=== PATIENT | male | born 1960 | race Caucasian/White ===

== ENCOUNTER 2021-06-30 10:59 | Inpatient (IN) | payer MEDICARE, MEDICAID, SELFPAY ==
[2021-06-30 13:18] VITALS: O2SAT 99; BMI 32.7
[2021-06-30 13:28] VITALS: BP 122/59; PULSE 75; RESP 16; TEMP 36.6; O2SAT 97
[2021-06-30] MEDS: ACETAMINOPHEN 325 MG TABLET 650 MG PO (14:18)
[2021-06-30] MEDS: PIPERACILLIN/TAZO 3.375 GM in SODIUM CHLORIDE 0.9% 100 ML 25 ML IV ×2 (14:19→21:09)
[2021-06-30] MEDS: KETOROLAC 30 MG/ML VIAL IV (14:19)
[2021-06-30 16:16] VITALS: BP 117/70; PULSE 74; RESP 18; TEMP 37.1; O2SAT 95
[2021-06-30 17:00] VITALS: O2SAT 95
--- NOTE | 2021-06-30 18:24 | PM.HP.1 ---
History of Present Illness History of Present Illness Date Patient Seen: 06/30/21 Time Patient Seen: 18:24 Chief complaint: Direct admit/cholecystitis Narrative: Buzz Hi is a 60-year-old man transferred from an outside facility for acute cholecystitis. He developed right upper quadrant pain over the course the last 2 days. He presented to the outside institution with abdominal bloating and pain underwent ultrasound that demonstrates cholelithiasis and acute cholecystitis normal LFTs white blood cell count 13. He was started on antibiotic therapy has significant improvement in his abdominal pain since arrival. He is tolerating a clear liquid diet. He has remote history of myocardial infarction with stents takes aspirin and PRASUGREL last dose yesterday 9:00 a.m.. Patient History Medical History BPH (benign prostatic hyperplasia) Hyperlipidemia Hypertension Myocardial infarct, old Neuropathy Vertigo Surgical History Hx of tonsillectomy Family & Social History Family History Mother Cancer Dementia Father Cancer Social History: household members none Prior Living Arrangements House Safety & Behavioral: Feels Safe in Current Yes Environment Been Physically Hurt or No Threatened By a Person Suicidal Ideation Description None Suicide Plan Description No Plan Tobacco & Substance use: Smoking Status Never smoker alcohol intake never Substance Use Type does not use Meds Home Medications and Allergies Home Medications Medication Instructions Recorded Confirmed Type amiloride 5 mg tablet mg BID 06/30/21 History ascorbic acid (vitamin C) 500 mg 500 PRN PRN 06/30/21 History tablet (Vitamin C) aspirin QAM 06/30/21 History atorvastatin 80 mg tablet mg QPM 06/30/21 History losartan 25 mg tablet mg BID 06/30/21 History prasugrel 10 mg tablet mg QAM 06/30/21 History tamsulosin 0.4 mg capsule mg PO QAM 06/30/21 History Allergies Allergy/AdvReac Type Severity Reaction Status Date / Time No Known Drug Allergies Allergy Verified 06/30/21 13:38 Review of Systems Review of Systems ROS: Yes All systems reviewed with the patient and are negative except as otherwise documented Exam Vital Signs (past 8 hours): - 06/30/21 13:18 06/30/21 13:28 06/30/21 16:16 Temperature 97.8 F 98.8 F Pulse Rate 75 74 Respiratory Rate 16 18 Blood Pressure 122/59 L 117/70 Pulse Oximetry 99 97 95 06/30/21 17:00 Temperature Pulse Rate Respiratory Rate Blood Pressure Pulse Oximetry 95 Oxygen Delivery Method Room Air Oxygen Flow Rate 0 Narrative Exam Narrative: Constitutional-he is oriented to person, place and time. No apparent distress Cardiovascular- regular rate, no peripheral edema Pulmonary-unlabored respiratory effort, no audible wheezing Abdominal-soft, minimally tender right upper quadrant no guarding Musculoskeletal-no cyanosis or clubbing Neurological-nonfocal, normal strength throughout, normal gait. Skin-warm and dry Assessment & Plan Assessment and plan (1) Acute cholecystitis: Status: Acute Assessment & Plan narrative: 60-year-old man history of myocardial infarction on aspirin and PRASUGREL here with acute cholecystitis. He has significant improvement in his abdominal pain since starting on Zosyn. Discussed with him management options including surgical and non operative therapy. With dual anti-platelet therapy recommended that we proceed with non operative management at this time followed by an elective cholecystectomy when he is sufficiently off the anti-platelet medication. Will reassess abdominal pain in a.m. check CBC and CMP. Quality VTE Deep Vein Thrombosis/Pulmonary Embolism Present on Admission: No
[2021-06-30 20:28] VITALS: BP 136/67; PULSE 71; RESP 18; TEMP 36.9; O2SAT 96
[2021-06-30 20:43] VITALS: O2SAT 95
--- NOTE | 2021-06-30 22:19 | PC.NURSE ---
shift overview VSS. Alert and oriented and cooperative with care. Abdomen distended with bowel tones +x4. Tolerating PO intake without nausea or increase in discomfort. Pt's dinner consisted of fruit, chix noodle soup, V8 juice and some coffee. Denies need for pain medication. Pt aware will have AM labs and than plan from there. using call light for needs and prior to activity and instructed to continue with the same.
[2021-07-01] VITALS (9 sets, daily range): BP systolic 105–132; BP diastolic 59–79; PULSE 68–79; RESP 16; TEMP 36.5–38.1; O2SAT 93–96
[2021-07-01] MEDS: KETOROLAC 30 MG/ML VIAL IV ×3 (00:15→22:32)
[2021-07-01] MEDS: MELATONIN 3 MG TABLET PO (00:16)
[2021-07-01] MEDS: PIPERACILLIN/TAZO 3.375 GM in SODIUM CHLORIDE 0.9% 100 ML 25 ML IV ×3 (04:14→20:57)
[2021-07-01 06:38] LABS: Add Manual Diff / Slide Review NO; Basophils Absolute Auto 100 /uL (0-100); Basophils Percent Auto 0.6 % (0-2); Eosinophils Absolute Auto 200 /uL (0-450); Hematocrit 38.1 % (41-53); Hemoglobin 12.6 g/dL (13.5-17.5); Lymphocytes Absolute Auto 900 /uL (1100-4500); Lymphocytes Percent Auto 5.5 % (25-40); Mean Corpuscular Hemoglobin 28.6 PG (26-34); Mean Corpuscular Volume 86.7 fL (80-100); Monocytes Absolute Auto 1600 /uL (0-900); Monocytes Percent Auto 9.6 % (3-14); Neutrophils Absolute Auto 14100 /uL (1500-7000); Neutrophils Percent Auto 83.3 % (50-75); Platelet Count 190 X10^3/uL (150-400); Red Blood Cell Count 4.39 X10^6/uL (4.5-5.9); Red Cell Distribution Width 12.9 % (11.6-14.8); White Blood Cell Count 16.9 X10^3/uL (4.5-11.0)
[2021-07-01 06:52] LABS: Alanine Aminotransferase 22 IU/L (<50); Albumin 3.7 g/dL (3.5-5.0); Albumin Globulin Ratio 1.1 (1.0-2.8); Alkaline Phosphatase 92 U/L (38-126); Aspartate Aminotransferase 31 IU/L (17-59); BUN Creatinine Ratio 12.9 (6-22); Bilirubin Total 1.3 mg/dL (0.2-1.3); Blood Urea Nitrogen 9 mg/dL (9-20); Calcium 9.1 mg/dL (8.4-10.2); Carbon Dioxide 28 mmol/L (22-32); Chloride 100 mmol/L (98-107); Estimated Glomerular Filt Rate > 60.0 mL/min (>60); Globulin 3.5 g/dL (1.7-4.1); Glucose 125 mg/dL (70-100); HEMOLYSIS < 15 (0-50); Potassium 3.9 mmol/L (3.4-5.1); Sodium 134 mmol/L (137-145); Total Protein 7.2 g/dL (6.3-8.2)
--- NOTE | 2021-07-01 09:29 | P.PN_ITS ---
Subjective Subjective Date Patient Seen: 07/01/21 Time Patient Seen: 09:29 Interval history: Worsening right upper quadrant pain overnight. No fever no nausea. Exam Vital Signs (past 8 hours): - 07/01/21 04:35 07/01/21 05:00 07/01/21 07:40 Temperature 98.6 F 97.9 F Pulse Rate 68 79 Respiratory Rate 16 16 Blood Pressure 105/59 L 132/78 Pulse Oximetry 95 95 93 Oxygen Delivery Method Room Air Oxygen Flow Rate 0 Narrative Exam Narrative: General adult male alert no acute distress. Abdomen positive Felix sign. Objective Labs Result Diagrams: 07/01/21 06:12 07/01/21 06:12 Labs: Laboratory Results - last 24 hr 07/01/21 07/01/21 06:12 06:12 WBC 16.9 H RBC 4.39 L Hgb 12.6 L Hct 38.1 L MCV 86.7 MCH 28.6 MCHC 33.0 RDW 12.9 Plt Count 190 Neut % (Auto) 83.3 H Lymph % (Auto) 5.5 L [place] % (Auto) 9.6 Eos % (Auto) 1.0 L Baso % (Auto) 0.6 Neut # (Auto) 96759 H Lymph # (Auto) 900 L [place] # (Auto) 1600 H Eos # (Auto) 200 Baso # (Auto) 100 Sodium 134 L Potassium 3.9 Chloride 100 Carbon Dioxide 28 BUN 9 Creatinine 0.70 Estimated GFR > 60.0 BUN/Creatinine Ratio 12.9 Glucose 125 H Calcium 9.1 Total Bilirubin 1.3 AST 31 ALT 22 Alkaline Phosphatase 92 Total Protein 7.2 Albumin 3.7 Globulin 3.5 Albumin/Globulin Ratio 1.1 [facility] Medical History BPH (benign prostatic hyperplasia) Hyperlipidemia Hypertension Myocardial infarct, old Neuropathy Vertigo Surgical History Hx of tonsillectomy Family History Mother Cancer Dementia Father Cancer Social History household members: none Smoking Status: Never smoker alcohol intake: never Assessment & Plan Assessment and plan (1) Acute cholecystitis: Status: Acute Assessment & Plan narrative: 60-year-old man history of myocardial infarction admitted with acute cholecystitis. Trialed non operative management with antibiotic therapy over the past 24 hours however he has worsening right upper quadrant pain and white blood cell count now 17 up from 13 despite antibiotics. This was initially done because he was taking aspirin and prasugrel last dose 06/29 and we were attempting to post pone surgery until it could be done electively when he was sufficiently off the antiplatelet medication. I explained that the approach is not working and I think it would be best to move forward with cholecystectomy. Patient extremely irascible today talking in wide ranging tangents about cancer concerns, and the medical system in general and leaving the hospital. -NPO IVF -Zosyn -Consult with social work to determine if he wants to stay for an operation or leave against medical advice Quality VTE Deep Vein Thrombosis/Pulmonary Embolism Present on Admission: No
--- NOTE | 2021-07-01 10:18 | PC.NURSE ---
Patient is agitated and very suspicious of staff. Per retail shift manager report, patient insisted his medication wrist band was being scanned overnight and stating medication was being given, however that was not the case. During assessment this morning, patient is stating that he does not trust the doctors and is fixating on a cancer diagnosis that he does not have. Dr. Florez in to see pt, explaining his recommendation is surgical intervention. Patient is upset and refusing to make a decision about surgery or leaving the hospital. After a long discussion with me, the pt cannot or will not tell me what needs to happen to assist him to make a decision. TOMY Mendoza, and Marga the charge nurse will speak with the patient to attempt to assist him.
[2021-07-01] MEDS: OXYCODONE IR 5 MG TABLET PO (12:07)
--- NOTE | 2021-07-01 15:38 | CM.IDA ---
Initial DCP Assessment Note Pt is a 60 yo male, resident of [facility], arrives via EMS, apparently a direct admit from [facility] for worsening abd pain, surgeon is recommending lap sherry. PCP: Not listed Payer: [facility] According to conversation w/Dr Florez this morning, patient has been quite reluctant re: accepting medical care and appears suspicious of staff. Dr Florez requesting this TROLLEY COACH DRIVER assist in identification of barriers to care and indicates patient may be considering leaving against medical advice. This TROLLEY COACH DRIVER and CAPO Dye met w/patient in room to support and discuss any perceived barriers to care. Patient is very cyclical during this conversation, states concerns about the medical field, behavior from doctors and admits to apprehension re: the proposed surgery. Patient willing to state he is not considering leaving AMA at this time but will not consent to the recommended lap sherry at this time. Patient requests access to his medical record to review; CAPO Dye kindly assisted with this today. Patient also states concern re: the status of his cardiac history and how that will effect surgery, and requests additional time to think about the ramifications of this surgery before agreeing. CAPO Dye and CAPO Hernandes have kindly spent much of the day educating and encouraging patient as he considers treatment options here at [facility]. TOMY Correia Discharge Planning/Care Management CM Discharge Assessment Start: 07/01/21 15:36 Freq: Status: Active Protocol: Document 07/01/21 15:36 JOSIE (Rec: 07/01/21 15:38 [id number]) Discharge Planning Assessment Assigned Studio Associate TOYM Escobar DPOA/Assigned Designee Name dhiraj Majano Contact Information Patient unsure of number: or [phone] (?) Advance Directives? No History Provided By Patient Prior Living Arrangements House Household Members none Type of transportation used prior to Drives own vehicle admit Independent with ADL's Yes Is patient alert and oriented? Yes Barriers to Discharge No Comment Not at this time. Medical POC still unfolding Discharge Plan Home Transportation Arrangement Bus vs taxi vs friend to transport (?)
[2021-07-01] MEDS: SODIUM CHLORIDE 0.9% FLUSH 10 ML IV (20:57)
--- NOTE | 2021-07-01 23:48 | P.CONS_ITS ---
History of Present Illness Consult details Date Patient Seen: 07/01/21 Time Patient Seen: 21:00 Chief complaint: Direct admit/cholecystitis Narrative: Buzz Hi is a 60-year-old man transferred from an outside facility admitted to surgery service Dr. Florez for acute cholecystitis. Cholelithiasis and acute cholecystitis found on ultrasound, with normal LFTs w neelam blood cell count 13 on admit. Patient trialed non operative management with antibiotic therapy over 24 hours however he has worsening right upper quadrant pain and white blood cell count now 17 up from 13 despite antibiotics. He has remote history of myocardial infarction with stents takes aspirin and PRASUGREL last dose yesterday 9:00 a.m 06/30/2021. Apparently patient had a myocardial infa rction December 2020. It was recomended that he undergo bypass surgery at that time and he fired the cardiac surgeon and had stents placed instead. Dr. Florez graciously requested that the Hospital Service consult for perioperative risk stratification regarding patient's anticoagulation medication. Upon exam the patient is extremely agitated state, very verbal, verbalizes paranoia regarding the staff, Dr. Florez, treatment, and plan of care. The patient states that no one has been answering his questions, or the answers have been incorrect or lies. Patient's nurse advised me that he has been consulted by the care management team. Patient has been refusing to let the staff taking his vital signs. As I questioned the patient regarding HPI, ROS and exam, the patient looked away would not make eye contact and became silent refusing to answer even the smallest question. The patient verbalized that he is at the [facility] or victim of the staff and facility, I explained to him his patient rights. I verbalized to the patient he had a right to refuse any and all medical care and to leave the facility at any time. And that no one had the right to touch him without his consent. I asked multiple times regarding patient's ROS and HPI. As well as asking permission to physically assess the patient. Every time the patient would look away refusing to make eye contact and was silent refusing to acknowledge me, and would not answer. Patient was quite verbose in his communication which was centered around his concerns that the staff of the facility are not informed, that he has not been provided correct information regarding his health and/or the plan of care, and finally his concerns regarding cancer. It appears the patient has had multiple family members who have from cancer. The patient requested to have a complete workup for any and all cancers. I advised the patient that I bone be requesting to have a tele monitor placed on him so that we could monitor his heart and that he had the right to refuse, I also requested that he allow the staff to check his vital signs when schedule to do so. Meds Home Medications and Allergies Home Medications Medication Instructions Recorded Confirmed Type amiloride 5 mg tablet 5 mg BID 06/30/21 06/30/21 History ascorbic acid (vitamin C) 500 mg 500 mg PRN PRN 06/30/21 06/30/21 History tablet (Vitamin C) aspirin 81 mg QAM 06/30/21 06/30/21 History atorvastatin 80 mg tablet 80 mg QPM 06/30/21 06/30/21 History losartan 25 mg tablet 25 mg BID 06/30/21 06/30/21 History prasugrel 10 mg tablet 10 mg QAM 06/30/21 06/30/21 History tamsulosin 0.4 mg capsule 0.4 mg PO QAM 06/30/21 06/30/21 History Allergies Allergy/AdvReac Type Severity Reaction Status Date / Time No Known Drug Allergies Allergy Verified 06/30/21 13:38 Review of Systems Review of Systems Narrative: Patient unwilling to participate in ROS. Exam Vital Signs (past 8 hours): - 07/01/21 17:00 07/01/21 21:00 07/01/21 22:02 Temperature 99.8 F H Pulse Rate 68 Respiratory Rate 16 Blood Pressure 129/79 Pulse Oximetry 96 95 93 Oxygen Delivery Method Room Air Oxygen Flow Rate 0 Narrative Exam Narrative: General: Patient is a well-developed, well-nourished male in no distress at this time. HEENT: Normocephalic, atraumatic, extraocular muscles intact, oral pharynx is clear and mucous membranes are moist. Chest: Normal AP diameter and contour without kyphoscoliosis, no nasal flaring, retractions, or tachypneic labored Lungs: Not assessed patient did not provide consent Cardio: Not assessed patient did not provide consent Abdomen: Not assessed patient did not provide consent Musculoskeletal: no obvious observable deformity, crepitus, effusions, cyanosis, clubbing or edema present. Skin: Appears Warm dry and intact without rashes, ulcerations or petechiae. Neuro: Alert and orientated x3, no gross deficits observed of cranial nerves. Psych: Patient has a well-kept appearance, agitated, irritable, paranoid, mental status attitude thought context and judgment are inappropriate for age. Objective Labs Result Diagrams: 07/01/21 06:12 07/01/21 06:12 Labs: Laboratory Results - last 24 hr 07/01/21 07/01/21 06:12 06:12 WBC 16.9 H RBC 4.39 L Hgb 12.6 L Hct 38.1 L MCV 86.7 MCH 28.6 MCHC 33.0 RDW 12.9 Plt Count 190 Neut % (Auto) 83.3 H Lymph % (Auto) 5.5 L [place] % (Auto) 9.6 Eos % (Auto) 1.0 L Baso % (Auto) 0.6 Neut # (Auto) 11015 H Lymph # (Auto) 900 L [place] # (Auto) 1600 H Eos # (Auto) 200 Baso # (Auto) 100 Sodium 134 L Potassium 3.9 Chloride 100 Carbon Dioxide 28 BUN 9 Creatinine 0.70 Estimated GFR > 60.0 BUN/Creatinine Ratio 12.9 Glucose 125 H Calcium 9.1 Total Bilirubin 1.3 AST 31 ALT 22 Alkaline Phosphatase 92 Total Protein 7.2 Albumin 3.7 Globulin 3.5 Albumin/Globulin Ratio 1.1 Assessment & Plan Assessment & Plan narrative: Buzz Hi is a 60-year-old admitted to surgery service Dr. Florez for acute cholecystitis and Cholelithiasis. Dr. Florez kindly requested that the hospitalist Service consult regarding his prasugrel and ASA for remote history of myocardial infarction with stents. 1 cholelithiasis with acute cholecystitis, acute, present on admission -managed by Dr. Florez 2. History of myocardial infarction in the setting of stent placement and long-term anticoagulation, with essential hypertension, chronic, present on admission -last dose yesterday 9:00 a.m 06/30/2021 ASA & Prasugrel -MS with stent placement December 2020 -Based on risk stratification and the 2016 ACC/AHA guidelines it is safe to stop patient's ASA and Prasugrel for non cardiac surgery as it has been 6 months since the patient's MS with stent placement-based on the medical history provided to Dr. Florez by the patient. Please note I was unable to verify these facts, as the patient refused to provide any history, answer any questions, or allowed me to complete a physical exam. -The risks of noncardiac surgery after six months decreases the risks of both BMS and SELENA. (2016 ACC/AHA guidelines) -For prasugrel, it is recommended stopping 5-7 days before surgery. -patient did eventually consent to be monitored on telemedicine -recommend continue patient's losartan and amiloride -I was unable to verify the patient is not having any cardiac symptoms nor was I allowed to assess patient's heart sounds, as patient did not answer when questioned about chest pain, shortness of breath, diaphoresis, or any other cardiac symptoms. 3. Hyperlipidemia, chronic, present on admission -Continue patient's Lipitor 4. BPH, chronic, present on admission -continue patient's tamsulosin 5. Obesity as evidence by BMI 32.7, acute on chronic, present on admission -recommend consideration be given to dietary counseling Code status: Full code COVID PCR: negative COVID vaccination: Unknown Surrogate decision maker: Samm Juarez DVT/VTE prophylaxis: Medication contraindicated, SCDs only Disposition: Unknown I have utilized all available immediate resources to obtain, update, or review the patient's current medications.-patient refused to answer any questions, provide any information, or participate in his care at this time. I confirmed that the patient's advanced care plan is present, Code status is documented and/or surrogate decision maker is listed in the patient's medical record.
[2021-07-02] VITALS (18 sets, daily range): BP systolic 106–158; BP diastolic 50–93; PULSE 76–99; RESP 14–25; TEMP 36.3–39.1; O2SAT 91–96
--- NOTE | 2021-07-02 | PATH_ITS ---
[facility] Accession Number: [id number] . 01 Material submitted: . gallbladder - GALLBLADDER AND CONTENTS . 02 Diagnosis: Gallbladder, Cholecystectomy: Acute cholecystitis with cholelithiasis. Negative for dysplasia and malignancy. Please see comment. V 07/07/2021 1048 Local . 02 Comment: There is patchy coagulative necrosis versus autolysis present. Clinical correlation recommended. . 02 Electronically signed: . Rica Butler MD, Pathologist NPI- [id number] . 01 Gross description: . The specimen is received in formalin, labeled gallbladder and contents and consists of a fragmented gallbladder measuring 11.5 x 4.0 x 3.5 cm in aggregate. The area of the cystic duct is diffusely disrupted and measures approximately 0.6 cm in diameter. The serosa is haider-pink to haider-green with fibrinous adhesions. Opening reveals a haider-green trabeculated mucosa and a wall thickness measuring 0.6 cm. Also received within the specimen container are multiple haider cholelith fragments measuring 5.0 x 4.0 x 2.0 cm in aggregate. Fabric Worker Fitter sections are submitted, to include the area of the cystic duct margin (blue), in cassette A1. ([id number]) /MRV 07/06/2021 1119 Local . 02 Pathologist provided ICD-10: K80.60 . 02 CPT . 847733 Performed at: 01 [facility] [address], [place], [place] [id number] MD Juan Carlos Marin MD Phone: [phone] Performed at: 02 [facility] [address] [place], [place] [id number] MD Rica Butler MD Phone: [phone]
[2021-07-02] MEDS: LACTATED RINGERS 1,000 ML 42 ML IV (00:21)
[2021-07-02] MEDS: PIPERACILLIN/TAZO 3.375 GM in SODIUM CHLORIDE 0.9% 100 ML 25 ML IV (04:14)
--- NOTE | 2021-07-02 07:39 | PC.NURSE ---
Patient states each time I enter the room about his concerns for CA marker tests in his blood. Insists on this type of blood draw, refusing surgery until he can know that he does not have cancer before surgery. I tried to listen to his concerns, assuring him that staff is concerned with his inquiries. Told him it would be up to the provider if any testing was done. Wanted to know why hospitals are more concerned with money than patients. He has had 3 family members of cancer after hospitalizations or surgeries. Per patient report. Also said what would happen if he did not have surgery? Stated will refuse to leave, stated in pain, did not wish any pain medication this shift. Mentioned that no one is listening, despite reports from coordinator and off going shift that that had listened. He stated care management or sr. social media & mobile manager did not have any answers for his car that is stuck in [place]. Stated lawsuits against medical staff with his family deaths. Appears benjamin closed loops for his numerous concerns.
--- NOTE | 2021-07-02 09:53 | PC.NURSE ---
Addendum entered by Mariaelena Koehler R.N. 07/02/21 10:06: CT scan abdomen with contrast ordered, patient refusing diagnostic. States he is not cooperating. Original Note: 0940: Notified Dr. Grover regarding temp 101.4 Orally, new orders obtained. Patient refusing Tylenol. Refused am labs. Discussed importance of interventions to care for patient during hospitalization including but not limited to labs, medications, and antipyretics. Patient refusing nursing care, refused labs at second attempt.
--- NOTE | 2021-07-02 10:45 | PM.PN.1 ---
Subjective Subjective Date Patient Seen: 07/02/21 Time Patient Seen: 15:13 Interval history: Patient with improved abdominal pain, but still with fevers rising WBC count. He tells me his LHC was done at [facility] in [place]. He is very distrustful of physicians after that experience. He was initially recommended for triple bypass surgery, but got another opinion and had 2 stents placed instead. He has continued his medications he states, including aspirin an prasurgrel. He thinks his LHC was 12/24/20 or so. Given 6 months, it is reasonably safe to stop both medications for surgery and restart them as soon as possible after. Ideally for non-urgent/non-emergent surgeries this is held for 7 days but not required. He does note some chest discomfort with profound exertion since his stent placement. Will check an TTE today though no sign of acute volume overload on exam. EKG without evidence of active ischemia. Exam Vital Signs (past 8 hours): - 07/02/21 04:10 07/02/21 05:00 07/02/21 09:00 Temperature 98.2 F 101.4 F H Pulse Rate 76 98 H Respiratory Rate 16 16 Blood Pressure 146/77 H 158/93 H Pulse Oximetry 95 95 95 Oxygen Delivery Method Room Air Oxygen Flow Rate 0 Narrative Exam Narrative: GENERAL APPEARANCE: Well developed, well nourished, in no acute distress. SKIN: Inspection of the skin reveals no rashes, ulcerations or petechiae. HEENT: Normocephalic atraumatic, extraocular muscles are intact, oropharynx is clear and mucous membranes are moist, neck is supple without adenopathy NECK: Supple and symmetric. No JVD. CHEST: Normal AP diameter and normal contour without any kyphoscoliosis. LUNGS: Auscultation of the lungs revealed no wheezes, rhonchi, or rales. CARDIOVASCULAR: There was a regular rate and rhythm , 2/6 systolic murmur without rubs or gallops. ABDOMEN: Soft, minimally tender RUQ today, non-distended. MUSCULOSKELETAL: There was no tenderness or effusions noted. Muscle strength and tone were normal. EXTREMITIES: No cyanosis, clubbing or edema. NEUROLOGIC: Alert and oriented. Strength is +5/5 in the Upper Extremities and Lower Extremities Bilaterally. Psych: distrustful, but calm and cooperative. Objective Labs Result Diagrams: 07/02/21 11:40 07/02/21 11:40 [facility] Medical History BPH (benign prostatic hyperplasia) Hyperlipidemia Hypertension Myocardial infarct, old Neuropathy Vertigo Surgical History Hx of tonsillectomy Family History Mother Cancer Dementia Father Cancer Social History household members: none Smoking Status: Never smoker alcohol intake: never Assessment & Plan Assessment & Plan narrative: Buzz Hi is a 60-year-old admitted to surgery service Dr. Florez for acute cholecystitis and Cholelithiasis. Dr. Florez requested that the hospitalist Service consult regarding his prasugrel and ASA for remote history of myocardial infarction with stents. 1 cholelithiasis with acute cholecystitis, acute, present on admission -managed by Dr. Florez / surgical service. Agree with current antibiotic therapy. 2. History of myocardial infarction in the setting of stent placement and long-term anticoagulation, with essential hypertension, chronic, present on admission -last dose yesterday 9:00 a.m 06/30/2021 ASA & Prasugrel -ND with stent placement December 2020, probably 10/23/21 per patient. -Based on risk stratification and the 2016 ACC/AHA guidelines it is safe to stop patient's ASA and Prasugrel for non cardiac surgery as it has been 6 months since the patient's ND with stent placement. He states he has reliably taken these medications. -For prasugrel, it is recommended stopping 5-7 days before surgery in non-urgent/non-emergent situations. Currently safe to continue holding while awaiting surgery. -continue patient's home medications. -patient reports minimal cardiac symptoms after stent placement which are unchanged. Will check a TTE given this, but he appears euvolemic and medically as optimized as possible. Restart asa as soon as possible. Given 6+ months would ideally start prasurgrel as soon as possible as well, but if bleeding risk is high can consider holding this another few days after surgery. - preoperative troponin is negative. Would recommend post operative troponins given recent history. - TTE currently pending results. 3. Hyperlipidemia, chronic, present on admission -Continue patient's Lipitor 4. BPH, chronic, present on admission -continue patient's tamsulosin 5. Obesity as evidence by BMI 32.7, acute on chronic, present on admission - places patient at higher risk for complications due to potential surgery. Code status: Full code COVID PCR: negative Surrogate decision maker: Samm Stephens VTE Deep Vein Thrombosis/Pulmonary Embolism Present on Admission: No
[2021-07-02] MEDS: MEROPENEM 1 GM in SODIUM CHLORIDE 0.9% 100 ML 200 ML IV ×2 (11:13→17:57)
[2021-07-02] MEDS: ACETAMINOPHEN 325 MG TABLET 650 MG PO (11:19)
[2021-07-02 11:56] LABS: Add Manual Diff / Slide Review NO; Basophils Absolute Auto 100 /uL (0-100); Basophils Percent Auto 0.3 % (0-2); Eosinophils Absolute Auto 200 /uL (0-450); Eosinophils Percent Auto 0.9 % (2-4); Hematocrit 40.8 % (41-53); Hemoglobin 13.5 g/dL (13.5-17.5); Lymphocytes Absolute Auto 600 /uL (1100-4500); Lymphocytes Percent Auto 3.1 % (25-40); Mean Corpuscular HGB Conc 33.1 % (30-36); Mean Corpuscular Hemoglobin 28.5 PG (26-34); Mean Corpuscular Volume 86.1 fL (80-100); Monocytes Absolute Auto 1000 /uL (0-900); Monocytes Percent Auto 5.2 % (3-14); Neutrophils Absolute Auto 17100 /uL (1500-7000); Neutrophils Percent Auto 90.5 % (50-75); Platelet Count 238 X10^3/uL (150-400); Red Blood Cell Count 4.74 X10^6/uL (4.5-5.9); Red Cell Distribution Width 13.3 % (11.6-14.8); White Blood Cell Count 18.9 X10^3/uL (4.5-11.0)
[2021-07-02] MEDS: VANCOMYCIN 2,000 MG/400 ML PIGGYBACK 200 MG IV (12:00)
[2021-07-02 12:08] LABS: Creatine Kinase 24 U/L (55-170)
[2021-07-02 12:10] LABS: Alanine Aminotransferase 26 IU/L (<50); Albumin 4.3 g/dL (3.5-5.0); Alkaline Phosphatase 168 U/L (38-126); Aspartate Aminotransferase 33 IU/L (17-59); BUN Creatinine Ratio 18.5 (6-22); Bilirubin Total 1.7 mg/dL (0.2-1.3); Blood Urea Nitrogen 12 mg/dL (9-20); Calcium 9.9 mg/dL (8.4-10.2); Carbon Dioxide 23 mmol/L (22-32); Chloride 99 mmol/L (98-107); Estimated Glomerular Filt Rate > 60.0 mL/min (>60); Globulin 4.1 g/dL (1.7-4.1); Glucose 88 mg/dL (70-100); HEMOLYSIS < 15 (0-50); Potassium 3.6 mmol/L (3.4-5.1); Sodium 136 mmol/L (137-145); Total Protein 8.4 g/dL (6.3-8.2)
[2021-07-02 12:21] LABS: Troponin I 0.012 ng/mL (0.01-0.034)
[2021-07-02 12:40] LABS: Carcinoembryonic Antigen 0.9 ng/mL (0.1-3.0)
--- NOTE | 2021-07-02 12:41 | DI.ECHO.S_ITS ---
[facility]---------+ [facility] +---------+ : : [address] : : : : [id number] : : : : Phone: [phone]+ Echocardiogram Report + + :Name: GOLD SOLIS Study Date: 07/02/2021 Height: 70 in : :[facility] ReadingLocation: Weight: 226 lb : : Gender: Male BSA: 2.2 m2 : :: 1960 Age: 60 yrs BP: 129/79 mmHg: :Reason For Study: Chest pain : :Ordering Physician: EVA, : :MARYA HAMPTON Performed By: Ricardo Lew : :Referring: MARYA VELASQUEZ : + + Interpretation Summary Left ventricular systolic function appears normal with an estimated ejection fraction of around 60 to 65% with a mild dyssynchronous contraction pattern but no obvious focal wall motion abnormality. Left ventricular size and wall thickness are normal although with slight proximal septal thickening but no evidence for any outflow tract obstruction. There is a probable diastolic relaxation abnormality but probable normal filling pressures. The right ventricle appears normal in size and systolic function. CVP is around 3 mmHg. Both atria are normal in size. There is no significant valvular abnormality. Procedure: A two-dimensional transthoracic echocardiogram with color flow and Doppler was performed. The study quality was technically adequate. There is no prior echocardiogram noted for this patient. A contrast injection of Definity was performed to improve assessment of LV function. The patient was in sinus rhythm with heart rates between 80-90 bpm during the exam. Left Ventricle: The left ventricle is normal in size and wall thickness. There is mild proximal septal thickening noted. There is no echo evidence for significant left ventricular outflow tract obstruction. Left ventricular systolic function is normal. The ejection fraction is estimated to be 60-65%. There is a mild dyssynchronous contraction pattern, consistent with a conduction abnormality. There are no focal wall motion abnormalities. Diastolic parameters suggest a relaxation abnormality of the left ventricle, consistent with probable normal filling pressures. Right Ventricle: The right ventricle is normal in size and function. Atria: Both atria are normal in size. There is no Doppler evidence for an interatrial shunt. Mitral Valve: The mitral valve is normal in structure and function. There is trace mitral regurgitation. Aortic Valve: The aortic valve is normal in structure and function. The aortic valve is trileaflet. The aortic valve opens well. No aortic regurgitation is present. Tricuspid Valve: The tricuspid valve is normal in structure and function. There is a trace or physiologic amount of tricuspid regurgitation. Pulmonary artery pressures cannot be estimated because of the lack of a measurable TR jet velocity but the IVC suggests a CVP of around 3 mmHg. Pulmonic Valve: The pulmonic valve is normal in structure and function. There is no pulmonic valvular regurgitation. There is no significant valvular heart disease. Great Vessels: The aortic root is normal size. The dimensions of the ascending aorta are normal. The IVC is of normal diameter and collapses greater than 50% with a sniff. This suggests a low right atrial pressure of 3 mm Hg. Pericardium/ Pleura There is no pericardial effusion. There is no pleural effusion. MMode/2D Measurements & Calculations LVIDd: 5.2 cm LVOT diam: 2.0 cm LVIDs: 3.8 cm Ao root diam: 3.0 cm FS: 28.0 % asc Aorta Diam: 2.9 cm IVSd: 1.0 cm LVPWd: 0.97 cm LV delgadillo. diameter/BSA (cm/m^2): 2.4 LV sys. diameter/BSA (cm/m^2): 1.7 LA A2 area: 21.0 cm2 RA long axis: 4.7 cm LA A4 area: 16.3 cm2 RA area: 12.5 cm2 LA length (vol): 5.4 cm RA vol: 28.3 ml LA vol: 53.9 ml RA : 12.9 ml/m2 LA vol index: 24.5 ml/m2 TAPSE: 2.8 cm Doppler Measurements & Calculations Ao V2 max: 199.3 cm/sec LVOT Max Grzegorz: 137.6 cm/sec Ao V2 mean: 133.9 cm/sec LV V1 max P.6 mmHg Ao max P.9 mmHg LV V1 VTI: 25.8 cm Ao mean P.2 mmHg MICHAEL(I,D): 2.6 cm2 Ao V2 VTI: 31.1 cm MICHAEL(V,D): 2.2 cm2 sev ratio: 0.83 MICHAEL indexed to BSA (cm^2/m^2): 1.2 MV E max grzegorz: 95.1 cm/sec PA pr(Accel): 42.2 mmHg MV A max grzegorz: 134.0 cm/sec MV E/A: 0.71 Med Peak E' Grzegorz: 6.1 cm/sec E/E' med: 15.5 Lat Peak E' Grzegorz: 8.5 cm/sec E/E' lat: 11.2 E/e' average: 13.3 MV dec time: 0.27 sec SV([facility]): 81.6 ml Reading Physician:03:39 PM
--- NOTE | 2021-07-02 17:18 | P.PN_ITS ---
Subjective Subjective Interval history: He believes his pain is improved. Concerned that his urine is getting darker since he has been made NPO Exam Vital Signs (past 8 hours): - 07/02/21 11:51 07/02/21 13:12 07/02/21 14:18 Temperature 102.4 F H 99.4 F Pulse Rate 99 H Respiratory Rate 14 Blood Pressure 129/79 Pulse Oximetry 94 93 07/02/21 15:56 Temperature 99.1 F Pulse Rate 78 Respiratory Rate 18 Blood Pressure 126/73 Pulse Oximetry 95 Oxygen Delivery Method Room Air Oxygen Flow Rate 0 Narrative Exam Narrative: Patient's temperature is been elevated. He was valentine cultured at least ordered to be valentine cultured. Lungs are clear. Abdomen is soft. Distended somewhat. No specific tenderness perhaps slightly in the upper mid and right upper quadrant. No palpable mass appreciated. Patient is alert oriented. Objective Imaging Echo: My impression: The impression of the supervisor special effects to interpreted the echocardiogram is that there is some very mild irregularities in the motion but it is an essentially normal study with normal ejection fraction normal wall motion and normal valves. Labs Result Diagrams: 07/02/21 11:40 07/02/21 11:40 Labs: Laboratory Results - last 24 hr 07/02/21 07/02/21 07/02/21 11:40 11:40 11:40 WBC 18.9 H RBC 4.74 Hgb 13.5 Hct 40.8 L MCV 86.1 MCH 28.5 MCHC 33.1 RDW 13.3 Plt Count 238 Neut % (Auto) 90.5 H Lymph % (Auto) 3.1 L [place] % (Auto) 5.2 Eos % (Auto) 0.9 L Baso % (Auto) 0.3 Neut # (Auto) 41606 H Lymph # (Auto) 600 L [place] # (Auto) 1000 H Eos # (Auto) 200 Baso # (Auto) 100 Sodium 136 L Potassium 3.6 Chloride 99 Carbon Dioxide 23 BUN 12 Creatinine 0.65 L Estimated GFR > 60.0 BUN/Creatinine Ratio 18.5 Glucose 88 Calcium 9.9 Total Bilirubin 1.7 H AST 33 ALT 26 Alkaline Phosphatase 168 H D Total Creatine Kinase 24 L CK-MB (CK-2) TNP CK-MB (CK-2) Rel Index TNP Troponin I 0.012 Total Protein 8.4 H Albumin 4.3 Globulin 4.1 Albumin/Globulin Ratio 1.0 Carcinoembryonic Ag 07/02/21 11:40 WBC RBC Hgb Hct MCV MCH MCHC RDW Plt Count Neut % (Auto) Lymph % (Auto) [place] % (Auto) Eos % (Auto) Baso % (Auto) Neut # (Auto) Lymph # (Auto) [place] # (Auto) Eos # (Auto) Baso # (Auto) Sodium Potassium Chloride Carbon Dioxide BUN Creatinine Estimated GFR BUN/Creatinine Ratio Glucose Calcium Total Bilirubin AST ALT Alkaline Phosphatase Total Creatine Kinase CK-MB (CK-2) CK-MB (CK-2) Rel Index Troponin I Total Protein Albumin Globulin Albumin/Globulin Ratio Carcinoembryonic Ag 0.9 PFSH Medical History BPH (benign prostatic hyperplasia) Hyperlipidemia Hypertension Myocardial infarct, old Neuropathy Vertigo Surgical History Hx of tonsillectomy Family History Mother Cancer Dementia Father Cancer Social History household members: none Smoking Status: Never smoker alcohol intake: never Assessment & Plan Assessment and plan (1) Acute cholecystitis: Status: Acute (2) History of coronary artery disease: Status: Acute (3) Enlarged prostate: Status: Acute Assessment & Plan narrative: Patient's anti-platelet drugs have been held. He has been seen by Dr. Bose our packaging line operator. I had a very long conversation in the presence of the nursing aluminum fabrication supervisor(at the patient's request) regarding exactly what his perceptions are and his goal in this hospitalization. It has been documented that he refused portions of the evaluation of the hospitalist overnight. He declined surgical treatment of his gallbladder yesterday. I ordered labs this morning and he declined to have those drawn initially as well. He also told me that he did not like the attitude of the surgeon and seemed to feel the same way about the provider who saw him for the hospitalist service and thus had refused to interact with them. In discussion with the patient it is his perception that he should have a thorough evaluation to prove that he does not have cancer before he has an operation. He has multiple family members who have had cancers of various kind. He was under the impression from the emergency room at [facility] that they would do blood work to rule out all sorts of cancers. He does not want to have an operation that opens him up in find cancer and nothing can be done. This is in the face of the fact that he really does not have any symptoms that would lead 1 to believe he has cancer at this time, and most of these kinds of evaluations are done as an outpatient. He did point out that he had a CT scan already at [facility] and I was able to review those x-rays and reports. He appears to have a distended gallbladder and probably has hydrops to my review. This would certainly explain why his white count is rising despite broad-spectrum antibiotic coverage. Today it continues to rise with a marked distribution of segs(90%) and his liver function tests worthy ve also begun to rise. This is most likely due to the inflammation in his gallbladder. Temperature is also gone up to as high as 102.4. In order to appease him I added a CEA and PSA to his blood work along with cardiac enzymes which was also of concern to him. Thus he agreed to have the blood work done which I have mentioned the results of. In a seperate conversation I reviewed all these labs except the PSA (which is not available yet) with the patient this afternoon. I explained to him that both Dr. Florez and I have recommended that he have his gallbladder out. I explained to him that the longer we wait the more difficult the operation and the harder on every organ system in his body it could potentially be, including his heart. I explained that the inflammation is already affecting his liver in a way that it had not been before. I explained to him that we would start laparoscopically but might have to open him due to the amount of inflammation. I also explained that we might laparoscopically evaluate him and feel that it would be better to place a drainage tube in the gallbladder at the time of the operation. That would depend on findings at the time of the operation and could not be predicted before hand. He would like to consider all this information before coming to a decision. I explained to him that he if he did not want an operation he should at least consider having a drainage tube placed in his gallbladder which may get him over the acute illness that he is suffering at this time and allow for elective removal of his gallbladder at a future date. If he decided to go that route I explained to him that we could not do that here as we do not have Int erventional Radiology and I would have to transfer him. He is mulling over all of that information and wanted to speak with Dr. Bose again before making any decision. Additionally, I did discuss the echo report with him as well. It is a near normal study except for some mild contraction abnormalities. Quality VTE Deep Vein Thrombosis/Pulmonary Embolism Present on Admission: No
[2021-07-02 17:42] LABS: Prostate Specific Antigen 4.61 ng/mL (0.10-4.00)
[2021-07-02] MEDS: LACTATED RINGERS 1,000 ML 150 ML IV ×2 (17:59→20:17)
--- NOTE | 2021-07-02 18:29 | PM.PREOP ---
Pre-operative Note COVID-19 COVID-19 status: Negative Result date/Date tested (Pos, Neg/Pending): 06/30/21 Interval Note History & Physical reviewed/Exam performed by Physician: Yes Changes to H&P: Yes H&P completed within 30 days and has changed as indicated here:: After discussion with the imagery intelligence about a half an hour ago patient has decided to proceed with an operation. I have discussed the operation in detail. I discussed with him laparoscopic versus open cholecystectomy with possible cholangiogram and possible need for postoperative ERCP. I talked to him about the possibility of displacing a drain in his gallbladder should be that inflamed and difficult operation. I talked to him about the risks of bleeding and infection. I talked to him about the possibility of a hernia developing and postoperative limitations on lifting and straining. I talked to him about the risk of injury to internal organs or ducts which might require major operation to repair if that occurred. I talked to him about postoperative bile leakage. I talked to him about the risk to his heart and lungs especially given his cardiac status. All questions were answered. And he wishes to proceed.
--- NOTE | 2021-07-02 18:56 | PC.NURSE ---
TAKEN TO SURGERY APROX. 190
--- NOTE | 2021-07-02 19:40 | SUR.OPER ---
Supine on padded OR bed, head on pillow, safety belt at thigh, left arm padded and tucked at side. Right arm secured on padded arm board <90 degrees abduction. Legs uncrossed. Padded footboard in place. Tape over blanket to secure lower legs.
[2021-07-02] MEDS: BUPIVACAINE 0.5% (PF) VIAL 30 ML INJ (19:53)
--- NOTE | 2021-07-02 21:50 | PM.OP.1 ---
Operative Date/Time/Diagnoses Date of procedure: 07/02/21 Time of procedure: 21:50 Pre-op diagnosis: Acute cholecystitis with cholelithiasis Post-op diagnosis: same (With gangrene of the gallbladder) Procedure & Clinicians Procedure: Laparoscopic cholecystectomy (unusually difficult operation) Same procedure as scheduled: Yes Indications: Patient is a gentleman admitted with upper abdominal pain, a CT showing probable hydrops, and a rising white count. Initially he declined an operation but ultimately was willing to proceed to the operating room to remove his gallbladder. Surgeon: Hakan Grover Click Yes if Unassisted: Yes Anesthesia Type: General Operative Notes Findings: Markedly thickened gallbladder with a necrotic wall. One large stone lodged in the into the gallbladder obstructing the outflow. Closure Type: primary Specimen(s): other (Gallbladder and stone) Prosthetic devices, grafts, tissues, transplants, or devices: None Applied: drain(s) (10 mm Scott-Gandhi placed in the gallbladder fossa) Estimated Blood Loss (mL): 100 Blood products transfused: none Procedure in detail: The patient was placed supine on the operating room table and underwent general endotracheal anesthesia. The patient was prepped and draped in the usual fashion. Local anesthetic was infiltrated above r the umbilicus and linear incision made and carried down through fascia into the peritoneal cavity. Stay sutures of 0 Vicryl were placed in the fascia. A 12 mm port was placed. The abdomen was insufflated. The patient was repositioned. Local anesthetic was infiltrated in 3 areas under the right costal margin and 3 small incisions made followed by placing 3 5 mm ports under direct laparoscopic camera vision internally. The gallbladder was encased in omentum. This was taken down bluntly. The gallbladder was a markedly thickened distended structure that was quite elongated. Initially could not grasp it and the needle was inserted and I aspirated about 40 cc of dark green fluid which was it is cultured. This allowed me to grasp and elevate the gallbladder. It was clear there places in the wall of the gallbladder were that were necrotic. Just elevating the gallbladder caused bile to leak near the area the Marty where gangrenous wall could be seen. The gallbladder was grasped and elevated. Dissection was begun near its end. I was able to identify the end of the gallbladder and dissect it somewhat. However the tissues were thick and structures were not identifiable and I decided not to dissect in this area for fear of injuring the blood supply of the liver or the common duct. I decided to take the gallbladder down from above. Using a Thunderbeat(Harmonic scalpel) I dissected the gallbladder from its bed in the liver. Some of this dissection was able to be done bluntly because portions of the wall were necrotic. The dissection was carried down and I was able to divide the artery and cauterize it with the Harmonic scalpel. I was having a great deal of difficulty seeing the area of the marty because of the patient's obesity and the difficulty retracting the liver. I decided to divide the gallbladder and half so that I could lift the tissues higher and see the marty better. Using with Harmonic scalpel I divided the gallbladder in half and laid the dissected piece in the right upper quadrant. The open end of the gallbladder revealed a stone impacted in the and. This was making it difficult to grasp the gallbladder that remained attached to the patient. I was able to extract it and lay it where it was easily seen for removal later. I then dissected the lower half about using the Harmonic scalpel. I also used some blunt dissection as well.. Ultimately, only the cystic duct remained tethering the gallbladder to the patient. I placed a 0 PDS loop on it and cinched it down. I then divided the gallbladder above this tie and freed the 2nd piece of the gallbladder from the attachments to the patient. A bag was inserted and I removed the 1st piece of gallbladder, the 2nd piece and the single large stone that had been identified. These were placed in the bag and removed through the umbilical port without spillage. The abdomen is reinserted and the right upper quadrant irrigated and suctioned free of fluid. There was no visible bleeding and no visible leakage of bile. A 10 mm wide Scott-Gandhi drain was placed in the gallbladder fossa and brought out through the lateral-most port under the right costal margin. It was secured with a 3-0 nylon suture. The port sites were all irrigated. The stay sutures at the umbilicus were elevated. A 2 0 PDS suture was placed between them. The Vicryl and PDS sutures were then tied. The skin in all areas was closed with interrupted 4 0 Vicryl subcuticular stitches. Steri-Strips and Mastisol were applied. Gauze was placed around the drain site. Band-Aids were placed on the other incisions and the patient was awakened, extubated and taken to the recovery area in good condition. There were no apparent complications. This was a very difficult and slow operation taking twice as long as a normal laparoscopic cholecystectomy takes. This was due not only to the patient's weight but also due to the amount of inflammation that I encountered during this operation. Complications: none Post-operative Condition: stable Disposition: PACU
--- NOTE | 2021-07-02 22:51 | SUR.PHASEI ---
Pt arrived to PACU, chin support x 5 minutes for airway patency, then self maintained, pt slow to wake. Once awake denied pain, tolerated ice then sips of cranberry juice. Belly soft, bandaids and drain dressings remained c/d/i. Report called to Jacob, pt transported up on 02 then placed on )2 in room. Bed low, locked SCD's adaptive physical education specialist light in reach, pt made aware not to get OOB w/o assist of staff.
[2021-07-02] MEDS: DOCUSATE 100 MG CAPSULE PO (23:16)
[2021-07-02] MEDS: TAMSULOSIN 0.4 MG CAPSULE PO (23:16)
[2021-07-03] VITALS (8 sets, daily range): BP systolic 117–162; BP diastolic 69–91; PULSE 66–94; RESP 16–18; TEMP 35.7–37; O2SAT 92–97
[2021-07-03] MEDS: MEROPENEM 1 GM in SODIUM CHLORIDE 0.9% 100 ML 200 ML IV ×3 (01:45→16:25)
[2021-07-03 06:24] LABS: Add Manual Diff / Slide Review NO; Basophils Absolute Auto 0 /uL (0-100); Basophils Percent Auto 0.2 % (0-2); Eosinophils Absolute Auto 0 /uL (0-450); Eosinophils Percent Auto 0.1 % (2-4); Hemoglobin 11.8 g/dL (13.5-17.5); Lymphocytes Absolute Auto 600 /uL (1100-4500); Lymphocytes Percent Auto 3.6 % (25-40); Mean Corpuscular HGB Conc 32.7 % (30-36); Mean Corpuscular Hemoglobin 28.5 PG (26-34); Mean Corpuscular Volume 87.1 fL (80-100); Monocytes Absolute Auto 300 /uL (0-900); Monocytes Percent Auto 2.1 % (3-14); Neutrophils Absolute Auto 14800 /uL (1500-7000); Platelet Count 247 X10^3/uL (150-400); Red Blood Cell Count 4.13 X10^6/uL (4.5-5.9); Red Cell Distribution Width 13.1 % (11.6-14.8); White Blood Cell Count 15.8 X10^3/uL (4.5-11.0)
[2021-07-03 06:39] LABS: Alanine Aminotransferase 48 IU/L (<50); Albumin 3.4 g/dL (3.5-5.0); Albumin Globulin Ratio 0.9 (1.0-2.8); Alkaline Phosphatase 127 U/L (38-126); Aspartate Aminotransferase 74 IU/L (17-59); BUN Creatinine Ratio 19.7 (6-22); Bilirubin Total 0.6 mg/dL (0.2-1.3); Blood Urea Nitrogen 13 mg/dL (9-20); Calcium 9.2 mg/dL (8.4-10.2); Carbon Dioxide 28 mmol/L (22-32); Chloride 103 mmol/L (98-107); Estimated Glomerular Filt Rate > 60.0 mL/min (>60); Globulin 3.7 g/dL (1.7-4.1); Glucose 135 mg/dL (70-100); HEMOLYSIS < 15 (0-50); Potassium 4.3 mmol/L (3.4-5.1); Sodium 137 mmol/L (137-145); Total Protein 7.1 g/dL (6.3-8.2)
--- NOTE | 2021-07-03 07:34 | P.PN_ITS ---
Subjective Subjective Date Patient Seen: 07/03/21 Interval history: He is seen today to follow-up his cholecystectomy and PTSD with complication of slow return to mobilization/normal. He continues to be somewhat hesitant when encouraged to mobilize and generally suspicious without overt paranoia during my interaction with him and from staff reports of their interaction with him today. He told me that he is on disability for PTSD and ?not for mental problems. ? He discusses that his car is in the parking lot at [facility] ED and at this point he feels unable to drive it because he would not be able to step up high enough into the drivers seat. He tells me that he wants to rest and recover today and not to mobilize. He lives alone in [place]. The white blood count is 15.8 with a hemoglobin of 11.8. The CMP is normal with an AST of 74. The PSA is 4.61 and the glucose is 135. Exam Vital Signs (past 8 hours): - 07/02/21 23:45 07/03/21 00:45 07/03/21 01:45 Temperature 97.6 F 97.6 F 97.1 F L Pulse Rate 76 73 74 Respiratory Rate 16 16 18 Blood Pressure 118/71 124/69 128/75 Pulse Oximetry 95 93 94 07/03/21 05:35 Temperature 96.2 F L Pulse Rate 67 Respiratory Rate 16 Blood Pressure 126/75 Pulse Oximetry 97 Oxygen Delivery Method Nasal Cannula Oxygen Flow Rate 3 Narrative Exam Narrative: Alert and oriented x3. He appears quite weak and hesitant to mobilize because he says his abdominal pain is no better than it was before the surgery. Heart is regular rate and rhythm without murmur Lungs clear to auscultation bilaterally Abdomen is soft, bowel sounds positive, mildly tender at his port points. Extremities have no ankle edema Objective Labs Result Diagrams: 07/03/21 05:45 07/03/21 05:45 Labs: Laboratory Results - last 24 hr 07/02/21 07/02/21 07/02/21 11:40 11:40 11:40 WBC 18.9 H RBC 4.74 Hgb 13.5 Hct 40.8 L MCV 86.1 MCH 28.5 MCHC 33.1 RDW 13.3 Plt Count 238 Neut % (Auto) 90.5 H Lymph % (Auto) 3.1 L [place] % (Auto) 5.2 Eos % (Auto) 0.9 L Baso % (Auto) 0.3 Neut # (Auto) 97086 H Lymph # (Auto) 600 L [place] # (Auto) 1000 H Eos # (Auto) 200 Baso # (Auto) 100 Sodium 136 L Potassium 3.6 Chloride 99 Carbon Dioxide 23 BUN 12 Creatinine 0.65 L Estimated GFR > 60.0 BUN/Creatinine Ratio 18.5 Glucose 88 Calcium 9.9 Total Bilirubin 1.7 H AST 33 ALT 26 Alkaline Phosphatase 168 H D Total Creatine Kinase CK-MB (CK-2) CK-MB (CK-2) Rel Index Troponin I Total Protein 8.4 H Albumin 4.3 Globulin 4.1 Albumin/Globulin Ratio 1.0 Carcinoembryonic Ag Prostate Specific Ag 4.61 H 07/02/21 07/02/21 07/03/21 11:40 11:40 05:45 WBC 15.8 H RBC 4.13 L Hgb 11.8 L Hct 36.0 L MCV 87.1 MCH 28.5 MCHC 32.7 RDW 13.1 Plt Count 247 Neut % (Auto) 94.0 H Lymph % (Auto) 3.6 L [place] % (Auto) 2.1 L Eos % (Auto) 0.1 L Baso % (Auto) 0.2 Neut # (Auto) 24604 H Lymph # (Auto) 600 L [place] # (Auto) 300 Eos # (Auto) 0 Baso # (Auto) 0 Sodium Potassium Chloride Carbon Dioxide BUN Creatinine Estimated GFR BUN/Creatinine Ratio Glucose Calcium Total Bilirubin AST ALT Alkaline Phosphatase Total Creatine Kinase 24 L CK-MB (CK-2) TNP CK-MB (CK-2) Rel Index TNP Troponin I 0.012 Total Protein Albumin Globulin Albumin/Globulin Ratio Carcinoembryonic Ag 0.9 Prostate Specific Ag 07/03/21 05:45 WBC RBC Hgb Hct MCV MCH MCHC RDW Plt Count Neut % (Auto) Lymph % (Auto) [place] % (Auto) Eos % (Auto) Baso % (Auto) Neut # (Auto) Lymph # (Auto) [place] # (Auto) Eos # (Auto) Baso # (Auto) Sodium 137 Potassium 4.3 Chloride 103 Carbon Dioxide 28 BUN 13 Creatinine 0.66 Estimated GFR > 60.0 BUN/Creatinine Ratio 19.7 Glucose 135 H Calcium 9.2 Total Bilirubin 0.6 AST 74 H ALT 48 Alkaline Phosphatase 127 H Total Creatine Kinase CK-MB (CK-2) CK-MB (CK-2) Rel Index Troponin I Total Protein 7.1 Albumin 3.4 L Globulin 3.7 Albumin/Globulin Ratio 0.9 L Carcinoembryonic Ag Prostate Specific Ag PFSH Medical History BPH (benign prostatic hyperplasia) Hyperlipidemia Hypertension Myocardial infarct, old Neuropathy Vertigo Surgical History Hx of tonsillectomy Family History Mother Cancer Dementia Father Cancer Social History household members: none Smoking Status: Never smoker alcohol intake: never Assessment & Plan Assessment & Plan narrative: Buzz Hi is a 60-year-old admitted to surgery service Dr. Florez for acute cholecystitis and Cholelithiasis. Dr. Florez requested that the hospitalist Service consult regarding his prasugrel and ASA for remote history of myocardial infarction with stents. 1 cholelithiasis with acute cholecystitis, acute, present on admission -s/p Cholecystectomy 07/02. -PT eval for mobility. He is hesitant. 2. History of myocardial infarction in the setting of stent placement and long- term anticoagulation, with essential hypertension, chronic, present on admission -MS with stent placement December 2020, probably 10/23/21 per patient. -Based on risk stratification and the 2016 ACC/AHA guidelines it is safe to stop patient's ASA and Prasugrel for non cardiac surgery as it has been 6 months since the patient's MS with stent placement. He states he has reliably taken these medications. -patient reports minimal cardiac symptoms after stent placement which are unchanged. We checked a TTE given this, but he appears euvolemic and medically as optimized as possible. -Now back on Prasrugrel and Aspirin POD #1 - preoperative troponin is negative. - TTE with normal left ventricular function and ejection fraction of 60-65%. -The hospitalist service will sign off at this time. We are available at any time to answer questions and resume following if surgery identifies any further medical problems that need assistance. 3. Hyperlipidemia, chronic, present on admission -Continue Lipitor 4. BPH, chronic, present on admission -continue tamsulosin 5. Obesity as evidence by BMI 32.7, acute on chronic, present on admission - places patient at higher risk for complications due to potential surgery. 6. PTSD -on disability, lives alone, unclear support system -Somewhat suspicious and not easily reassured about many issues day to day Code status: Full code COVID PCR: negative Surrogate decision maker: Samm Stephens VTE Deep Vein Thrombosis/Pulmonary Embolism Present on Admission: No
[2021-07-03] MEDS: TAMSULOSIN 0.4 MG CAPSULE PO (09:59)
[2021-07-03] MEDS: ASPIRIN 81 MG CHEW TAB PO (09:59)
[2021-07-03] MEDS: SENNOSIDES 8.6 MG TABLET 17.2 MG PO (10:00)
[2021-07-03] MEDS: GABAPENTIN 300 MG CAPSULE PO ×2 (10:00→21:01)
[2021-07-03] MEDS: LOSARTAN 25 MG TABLET PO ×2 (10:00→21:01)
--- NOTE | 2021-07-03 10:11 | PM.PN.1 ---
Subjective Subjective Date Patient Seen: 07/03/21 Time Patient Seen: 10:11 Interval history: no events over night. Very anxious patient complains of gas pains. Exam Vital Signs (past 8 hours): - 07/03/21 05:35 07/03/21 08:00 07/03/21 10:00 Temperature 96.2 F L 98.3 F Pulse Rate 67 75 75 Respiratory Rate 16 18 Blood Pressure 126/75 148/84 H 148/84 H Pulse Oximetry 97 96 Oxygen Delivery Method Nasal Cannula Oxygen Flow Rate 0 Const General: cooperative and anxious Nutritional Appearance: overweight Orientation: alert and oriented x3 HENMT Head: normal to inspection Ears: hearing grossly normal bilaterally Resp Effort & Inspection: normal respiratory effort and able to speak in complete sentences GI Other: wounds intact, drain is serous. Objective Labs Result Diagrams: 07/03/21 05:45 07/03/21 05:45 Labs: Laboratory Results - last 24 hr 07/02/21 07/02/21 07/02/21 11:40 11:40 11:40 WBC 18.9 H RBC 4.74 Hgb 13.5 Hct 40.8 L MCV 86.1 MCH 28.5 MCHC 33.1 RDW 13.3 Plt Count 238 Neut % (Auto) 90.5 H Lymph % (Auto) 3.1 L [place] % (Auto) 5.2 Eos % (Auto) 0.9 L Baso % (Auto) 0.3 Neut # (Auto) 21564 H Lymph # (Auto) 600 L [place] # (Auto) 1000 H Eos # (Auto) 200 Baso # (Auto) 100 Sodium 136 L Potassium 3.6 Chloride 99 Carbon Dioxide 23 BUN 12 Creatinine 0.65 L Estimated GFR > 60.0 BUN/Creatinine Ratio 18.5 Glucose 88 Calcium 9.9 Total Bilirubin 1.7 H AST 33 ALT 26 Alkaline Phosphatase 168 H D Total Creatine Kinase CK-MB (CK-2) CK-MB (CK-2) Rel Index Troponin I Total Protein 8.4 H Albumin 4.3 Globulin 4.1 Albumin/Globulin Ratio 1.0 Carcinoembryonic Ag Prostate Specific Ag 4.61 H 07/02/21 07/02/21 07/03/21 11:40 11:40 05:45 WBC 15.8 H RBC 4.13 L Hgb 11.8 L Hct 36.0 L MCV 87.1 MCH 28.5 MCHC 32.7 RDW 13.1 Plt Count 247 Neut % (Auto) 94.0 H Lymph % (Auto) 3.6 L [place] % (Auto) 2.1 L Eos % (Auto) 0.1 L Baso % (Auto) 0.2 Neut # (Auto) 21582 H Lymph # (Auto) 600 L [place] # (Auto) 300 Eos # (Auto) 0 Baso # (Auto) 0 Sodium Potassium Chloride Carbon Dioxide BUN Creatinine Estimated GFR BUN/Creatinine Ratio Glucose Calcium Total Bilirubin AST ALT Alkaline Phosphatase Total Creatine Kinase 24 L CK-MB (CK-2) TNP CK-MB (CK-2) Rel Index TNP Troponin I 0.012 Total Protein Albumin Globulin Albumin/Globulin Ratio Carcinoembryonic Ag 0.9 Prostate Specific Ag 07/03/21 05:45 WBC RBC Hgb Hct MCV MCH MCHC RDW Plt Count Neut % (Auto) Lymph % (Auto) [place] % (Auto) Eos % (Auto) Baso % (Auto) Neut # (Auto) Lymph # (Auto) [place] # (Auto) Eos # (Auto) Baso # (Auto) Sodium 137 Potassium 4.3 Chloride 103 Carbon Dioxide 28 BUN 13 Creatinine 0.66 Estimated GFR > 60.0 BUN/Creatinine Ratio 19.7 Glucose 135 H Calcium 9.2 Total Bilirubin 0.6 AST 74 H ALT 48 Alkaline Phosphatase 127 H Total Creatine Kinase CK-MB (CK-2) CK-MB (CK-2) Rel Index Troponin I Total Protein 7.1 Albumin 3.4 L Globulin 3.7 Albumin/Globulin Ratio 0.9 L Carcinoembryonic Ag Prostate Specific Ag PFSH Medical History BPH (benign prostatic hyperplasia) Hyperlipidemia Hypertension Myocardial infarct, old Neuropathy Vertigo Surgical History Hx of tonsillectomy Family History Mother Cancer Dementia Father Cancer Social History household members: none Smoking Status: Never smoker alcohol intake: never Assessment & Plan Assessment & Plan narrative: Post op labs are as expected. Antibiotics stopped. S/p Lap sherry, anxiety is an issue. Plan: ambulate, advance diet. Social work for disposition. Time Spent With Patient Time with patient: 15-24 minutes Quality VTE Deep Vein Thrombosis/Pulmonary Embolism Present on Admission: No
[2021-07-03] MEDS: SODIUM CHLORIDE 0.9% FLUSH 10 ML IV ×2 (12:19→21:01)
[2021-07-03] MEDS: SIMETHICONE 80 MG TABLET PO ×2 (12:19→21:01)
[2021-07-03] MEDS: AMILORIDE 5 MG 5 EACH PO ×2 (12:19→21:00)
[2021-07-03 12:38] LABS: Vancomycin Trough < 5.0 ug/mL (10-20)
--- NOTE | 2021-07-03 14:06 | PT.IIE ---
Current Diagnoses Acute cholecystitis (06/30/21) Cholecystitis, unspecified (06/30/21) Benign prostatic hyperplasia without lower urinary tract symptoms (06/30/21) Personal history of other diseases of the circulatory system (06/30/21) Surgery Performed Operation Date: 07/02/21 16:30 Actual Procedures p Laparoscopic Cholecystectomy - Hakan Grover MD Medical History (Last Reviewed 07/02/21 @ 17:21 by Hakan Grover MD) BPH (benign prostatic hyperplasia) Hyperlipidemia Hypertension Myocardial infarct, old Neuropathy Vertigo Physical Therapy Inpatient Evaluation/Re-Eval M1 PT/OT-IP Prior Functional Status Start: 07/03/21 15:51 Freq: NEEDED Status: Active Protocol: Document 07/03/21 14:06 AB (Rec: 07/03/21 16:10 AB [email or web address]) Medical Review Prior Functional Status Medical History Reviewed Yes Communication able to make needs known Mobility and Gait pt stated that he is independent with all mobilities and ambulation without AD but has difficulty mobilizing at home Social History Household Members none Living Arrangements House Number of Floors (Floors) One Floor Number of Stairs To Enter/Railing? 1 step to enter Home Environment Standard Height Toilet,Tub/ Shower M2 PT-IP Current Condition Start: 07/03/21 15:51 Freq: NEEDED Status: Active Protocol: Document 07/03/21 14:06 AB (Rec: 07/03/21 16:10 AB [email or web address]) Physical Therapy Current Condition Current Condition Evaluation Date 07/03/21 Treatment Diagnosis s/p Lap sherry; difficulty in walking Onset Date 06/30/21 Precautions Abdominal Surgery Precautions Log Roll,Lifting Restrictions, Gait Belt above Incisional Area M3 PT-IP Subjective Start: 07/03/21 15:51 Freq: NEEDED Status: Active Protocol: Document 07/03/21 14:06 AB (Rec: 07/03/21 16:10 AB [id number]) Subjective Physical Therapy Visit Type Type Initial Evaluation Visit Start Time 14:06 Visit Stop Time 15:07 Total Visit Minutes 61 Number of MOLD CHIPPER Visits 0 Physical Therapy Visit Comments Patient Comments agreed to do PT; expresses concerns about going home, equipement needs and assistance needed. Therapy Pain Assessment Pain When Pain Assessed At Rest Pain Present Pain Present Pain Reported Location Abdomen Scale Used pain scale not stated but stated the pain is worse than child pain Pain Management Techniques Distraction,Modification of Treatment,Re-positioning, Timing of Activity with Medications M4 PT-IP Mobility and Gait Start: 07/03/21 15:51 Freq: NEEDED Status: Active Protocol: Document 07/03/21 14:06 AB (Rec: 07/03/21 16:10 AB [id number]) PT-Bed Mobility Assessment Rolling Type of Rolling Log Rolling Level of Assist Maximal Assistance Supine to Sit Supine to Sit Maximum Assistance,Head of Bed Elevated,Bedrails Sit to Supine Sit to Supine Maximum Assistance,Head of Bed Elevated,Bedrails PT-Transfer Assessment Sit to and From Stand Sit to and from Stand Moderate Assistance,Maximum Assistance,1 Person Assistance ,Use of Upper Extremities Equipment Transfer Assistive Device Gait Belt,Front Wheeled Walker Orthotic/Prosthetic Devices or Brace: No Comments Mobility Comments pt agreed to do PT. pt has a lot of concerns about going home (home set up, equipement needs) and tends to perseverate a regarding him not ready to go home. educated pt on PT assessment goals and objectives. Pt understood and agreed to mobilize. educated pt on abdominal precautions and log roll bed mobility. attempted to lower HOB down but pt unable to tolerate and wants HOB elevate up. c/o increase pain and stated that pain is worse than child pain. stated that R side abdomen feels like it is ripping off. cued pt to relax and take breaths and rest for a few and agreed to mobility again afterwards. completed log roll max A and max cues wtih HOB elevated to ~ 30 deg and pt used bed rail for support. requires increase rest breaks in between tasks. pt was able to sit on EOB CGA. completed sit to stand with one hand on FWW mod to max A and max cues. min A for standing balance and ambulated ~ 5 ft using FWW and c/o increase abdominal pain and stated that he has to go back to bed and completed backward stepping in A. completed sit to supine HOB elevated to ~ 70 deg max A with LE elevation to bed. pt tends to direct his own care. positioned in bed max A x 2 and max cues. call light and table placed within reach. informed pt regarding SNF rehab at this time and agreed. informed trimming caser. Gait Assessment Gait Gait Assistance Required: Minimum Assistance,1 Person Assist Distance (Feet) 10 Able to Maintain Weight Bearing Status Yes During Gait Assistive Devices Assistive Device Gait Belt,Front Wheeled Walker Orthotic/Prosthetic Devices or Brace: No Gait Deviations General Gait Pattern Antalgic,Decreased Stride Length,Decreased Feet Clearance,Step-to Gait Factors Limiting Gait Function Factors Limiting Gait Function Decreased Activity Tolerance, Decreased Strength,Limited Range of Motion,Pain,Poor Balance,Poor Safety Awareness Comments Gait Comments pls refer to mobility section for details. PT-Balance Assessment Sitting Balance and Reactions Static Sitting Balance Ability Good Dynamic Sitting Balance Ability Fair Standing Balance and Reactions Static Standing Balance Ability Fair Dynamic Standing Balance Ability Fair Device Used FWW M5 PT-IP Objective Assessments Start: 07/03/21 15:51 Freq: NEEDED Status: Active Protocol: Document 07/03/21 14:06 AB (Rec: 07/03/21 16:10 AB [email or web address]) Orientation Orientation/Cognition Level of Alertness Alert Orientation Name,Place,Situation Language Function Ability No Deficits Noted Safety Awareness Decreased Safety Awareness Gross Range of Motion Lower Extremity ROM Assessment Within Functional Limits Strength Lower Extremity Strength Assessment Right Impaired Hip 3+/5 Knee 3+/5 Muscle Tone Muscle Tone WNL Yes M6 PT-IP Treatment Start: 07/03/21 15:51 Freq: NEEDED Status: Active Protocol: Document 07/03/21 14:06 AB (Rec: 07/03/21 16:10 AB [email or web address]) Physical Therapy Treatment Education Education Provided Precautions,Safety M7 PT-IP Assessment and Plan Start: 07/03/21 15:51 Freq: NEEDED Status: Active Protocol: Document 07/03/21 14:06 AB (Rec: 07/03/21 16:10 AB [email or web address]) PT Summary Assessment and Plan Potential Rehabilitation Potential Good Status of Condition at Evaluation Evolving Summary Impairments Pain,ROM,Strength,Balance, Coordination,Sensation,Tone, Cognition,Bed Mobility, Transfers,Gait,Activity Tolerance Assessment Summary pt requiring max A with bed mobility, mod A for transfers and min A for ambulation using FWW but was only able to walk ~ 10 ft with c/o increase abdominal pain affecting mobility independence. pt will require SNF rehab at this time to improve overall strength and functional independence. Goals Bed Mobility Goal Minimal Assistance Transfer Goal Contact Guard Assistance,Front Wheeled Walker Gait Goal Contact Guard Assistance,Front Wheel Walker Gait Distance 100 Days to Meet Goals 10 Frequency of Treatment Frequency Of Treatment Once a Day Treatment Plan Physical Therapy Treatment Plan Bed Mobility Training,Transfer Training,Gait Training, Therapeutic Exercise,Balance Retraining,Post Op Education, Discharge Planning,Hot or Cold Pack,Neuromuscular Re-ed, Coordination Retraining,Manual Therapy Precautions Abdominal Surgery Precautions Log Roll,Lifting Restrictions, Gait Belt above Incisional Area Recommendations To Nursing Amount of Assist Needed 1 Person Assist Discharge Recommendations PT Discharge Recommendations SNF Rehab Transportation Needs at Discharge Wheelchair/Cabulance,Stretcher /Ambulance
--- NOTE | 2021-07-03 15:39 | CM.DPC ---
DCP Cont: Per MD, pt with Lenard Ny last night and improving but some significant mental health that likely limits his ability to progress quickly. PT ordered to determine needs. Per PT, weren't able to eval until this afternoon and spent 60 min with pt due to fear of pain limiting ability to participate fully. PT updated SW when complete around 1515 and therefore SW unable to meet with pt until 1530 after discussing pt with PT. Current recommendation is SNF due to pt residing alone and no supports and assist level currently. SW met bedside with pt and he confirms that he does not have any local family or friend support, his one listed friend is Mindi and per pt Mindi is developmentally delayed and unable to assist much at d/c. Pt states he told PT IF he were to d/c home eventually he would request SW helping obtain large, tall bedside commode, FWW, and preference would be a hospital bed. Pt's vehicle is also parked outside of [facility] parking lot as pt was transferred due to lack of beds and does not have transportation home at this time. SW confirmed that pt does not have Medicaid Transport benefits through [facility]. Pt states he is agreeable to SNF but preference would be SNF closer to home and aware he would need to be in the hospital 3 nights starting tonight for Medicare to cover SNF as he just was changed to Inpt Status as of today 07/03/21. Pt agreeable with SW determining which SNF's are closest to his home in [place] and discussed possible [facility], [facility], and [facility]. Pt aware that it is also based on bed availability, Medicare guidelines, and acceptance. SW called [facility] and no admissions today but fax is [phone]. SW called [facility] and faxed [phone]. SW called [facility] and had to leave [facility] and unsure their fax number. Plan: SW to follow closely with SNF review and calling for additional referrals as well as possible planning for home with HH if Surgeon cannot find medical justification for pt to stay until Tu for SNF coverage. TOMY Good
[2021-07-03] MEDS: ACETAMINOPHEN 325 MG TABLET 650 MG PO (16:20)
[2021-07-03] MEDS: LACTOBACILLUS ACIDOPHILUS TABLET 1 EACH PO (16:20)
[2021-07-03] MEDS: MELATONIN 3 MG TABLET PO (21:01)
[2021-07-04] VITALS (9 sets, daily range): BP systolic 133–171; BP diastolic 73–85; PULSE 60–78; RESP 17–18; TEMP 36.3–37.2; O2SAT 92–95
[2021-07-04] MEDS: MEROPENEM 1 GM in SODIUM CHLORIDE 0.9% 100 ML 200 ML IV ×3 (01:35→17:05)
[2021-07-04] MEDS: SODIUM CHLORIDE 0.9% FLUSH 10 ML IV ×3 (01:35→21:46)
[2021-07-04 05:50] LABS: Add Manual Diff / Slide Review NO; Basophils Absolute Auto 0 /uL (0-100); Basophils Percent Auto 0.2 % (0-2); Eosinophils Absolute Auto 100 /uL (0-450); Eosinophils Percent Auto 0.4 % (2-4); Hemoglobin 11.6 g/dL (13.5-17.5); Lymphocytes Absolute Auto 1300 /uL (1100-4500); Mean Corpuscular Hemoglobin 28.7 PG (26-34); Monocytes Absolute Auto 600 /uL (0-900); Monocytes Percent Auto 4.3 % (3-14); Neutrophils Absolute Auto 12700 /uL (1500-7000); Neutrophils Percent Auto 86.1 % (50-75); Platelet Count 288 X10^3/uL (150-400); Red Blood Cell Count 4.03 X10^6/uL (4.5-5.9); Red Cell Distribution Width 13.4 % (11.6-14.8); White Blood Cell Count 14.8 X10^3/uL (4.5-11.0)
[2021-07-04 06:02] LABS: Alanine Aminotransferase 33 IU/L (<50); Albumin 3.3 g/dL (3.5-5.0); Alkaline Phosphatase 111 U/L (38-126); Aspartate Aminotransferase 36 IU/L (17-59); Bilirubin Total 0.3 mg/dL (0.2-1.3); Blood Urea Nitrogen 18 mg/dL (9-20); Carbon Dioxide 28 mmol/L (22-32); Chloride 105 mmol/L (98-107); Estimated Glomerular Filt Rate > 60.0 mL/min (>60); Globulin 3.4 g/dL (1.7-4.1); Glucose 131 mg/dL (70-100); HEMOLYSIS < 15 (0-50); Sodium 138 mmol/L (137-145); Total Protein 6.7 g/dL (6.3-8.2)
[2021-07-04] MEDS: LACTOBACILLUS ACIDOPHILUS TABLET 1 EACH PO ×2 (09:56→17:08)
[2021-07-04] MEDS: TAMSULOSIN 0.4 MG CAPSULE PO (09:56)
[2021-07-04] MEDS: GABAPENTIN 300 MG CAPSULE PO ×2 (09:56→21:41)
[2021-07-04] MEDS: ASPIRIN 81 MG CHEW TAB PO (09:56)
[2021-07-04] MEDS: SIMETHICONE 80 MG TABLET PO (09:58)
[2021-07-04] MEDS: LOSARTAN 25 MG TABLET PO ×2 (09:58→21:39)
[2021-07-04] MEDS: AMILORIDE 5 MG 5 EACH PO ×2 (10:00→21:41)
--- NOTE | 2021-07-04 10:59 | PM.PN.1 ---
Subjective Subjective Date Patient Seen: 07/04/21 Interval history: Still anxious. Feeling better Exam Vital Signs (past 8 hours): - 07/04/21 04:20 07/04/21 07:32 07/04/21 09:58 Temperature 97.6 F 97.7 F Pulse Rate 72 72 72 Respiratory Rate 18 18 Blood Pressure 149/79 H 143/80 H 143/80 H Pulse Oximetry 92 92 Oxygen Delivery Method Nasal Cannula Oxygen Flow Rate 0 Narrative Exam Narrative: sitting in chair, no acute abd or infection. drain is serous, no bile Objective Labs Result Diagrams: 07/04/21 05:25 07/04/21 05:25 Labs: Laboratory Results - last 24 hr 07/03/21 07/04/21 07/04/21 11:30 05:25 05:25 WBC 14.8 H RBC 4.03 L Hgb 11.6 L Hct 35.0 L MCV 87.0 MCH 28.7 MCHC 33.0 RDW 13.4 Plt Count 288 Neut % (Auto) 86.1 H Lymph % (Auto) 9.0 L [place] % (Auto) 4.3 Eos % (Auto) 0.4 L Baso % (Auto) 0.2 Neut # (Auto) 30002 H Lymph # (Auto) 1300 [place] # (Auto) 600 Eos # (Auto) 100 Baso # (Auto) 0 Sodium 138 Potassium 4.0 Chloride 105 Carbon Dioxide 28 BUN 18 Creatinine 0.58 L Estimated GFR > 60.0 BUN/Creatinine Ratio 31.0 H Glucose 131 H Calcium 9.0 Total Bilirubin 0.3 AST 36 ALT 33 Alkaline Phosphatase 111 Total Protein 6.7 Albumin 3.3 L Globulin 3.4 Albumin/Globulin Ratio 1.0 Vancomycin Trough < 5.0 L PFSH Medical History BPH (benign prostatic hyperplasia) Hyperlipidemia Hypertension Myocardial infarct, old Neuropathy Vertigo Surgical History Hx of tonsillectomy Family History Mother Cancer Dementia Father Cancer Social History household members: none Smoking Status: Never smoker alcohol intake: never Assessment & Plan Assessment & Plan narrative: LFT's are normalizing. WBC drifting slowly down. Plan: remove drain, continue IV antibiotics. CBC in am. Quality VTE Deep Vein Thrombosis/Pulmonary Embolism Present on Admission: No
--- NOTE | 2021-07-04 11:14 | PT.IPTN ---
Current Diagnoses Acute cholecystitis (06/30/21) Cholecystitis, unspecified (06/30/21) Benign prostatic hyperplasia without lower urinary tract symptoms (06/30/21) Personal history of other diseases of the circulatory system (06/30/21) Surgery Performed Operation Date: 07/02/21 16:30 Actual Procedures p Laparoscopic Cholecystectomy - Hakan Grover MD Physical Therapy Treatment Note M2 PT-IP Current Condition Start: 07/03/21 15:51 Freq: NEEDED Status: Active Protocol: Document 07/03/21 14:06 AB (Rec: 07/03/21 16:[address] [id number]) Physical Therapy Current Condition Current Condition Evaluation Date 07/03/21 Treatment Diagnosis s/p Lap sherry; difficulty in walking Onset Date 06/30/21 Precautions Abdominal Surgery Precautions Log Roll,Lifting Restrictions, Gait Belt above Incisional Area M3 PT-IP Subjective Start: 07/03/21 15:51 Freq: NEEDED Status: Active Protocol: Document 07/04/21 10:47 LRN (Rec: 07/04/21 11:14 LRN [id number]) Subjective Physical Therapy Visit Type Type Treatment Note Visit Start Time 10:02 Visit Stop Time 10:37 Total Visit Minutes 35 Physical Therapy Visit Comments Patient Comments Pt agreeable to PT. Requests transfer training with HOB elevated due to pain and because pt is planning on going to SNF at [place]. Pain to start 04/15, no significant change at end of treatment. Therapy Pain Assessment Pain When Pain Assessed At Rest Pain Present Pain Present Pain Reported Location Abdomen Intensity 6 Scale Used Numeric (0 - 10) Pain Behaviors Facial Grimacing,Holding Area Pain Management Techniques Re-positioning M4 PT-IP Mobility and Gait Start: 07/03/21 15:51 Freq: NEEDED Status: Active Protocol: Document 07/04/21 10:47 LRN (Rec: 07/04/21 11:14 LRN [id number]) PT-Bed Mobility Assessment Rolling Type of Rolling Log Rolling Level of Assist Minimal Assistance Supine to Sit Supine to Sit Minimal Assistance,1 Person Assistance,Head of Bed Elevated,Bedrails Scooting Scooting to Edge of Bed Standby Assistance PT-Transfer Assessment Sit to and From Stand Sit to and from Stand Standby Assistance,Contact Guard Assistance,1 Person Assistance,Use of Upper Extremities Equipment Transfer Assistive Device Gait Belt,Front Wheeled Walker Orthotic/Prosthetic Devices or Brace: No Transfer Ability Level of Assist Standby Assistance,Contact Guard Assistance Comments Mobility Comments Pt receptive to using pillow at abdomen for transfers to minimize pain after education & training for use. Educated pt in movement precautions (log roll and use of pillow to abdomen). Educated pt in max tolerance symptoms to aerobic ex ( walking), using SpO2 values and symptoms of heaviness of breathing with short walk. With transfer OOB, attempted to lower HOB down but pt unable to tolerate and wants HOB elevate up ~30 deg's with pt using bed rail to assist with transfer due to abdominal pain. Fair tolerance to LE ex with pillow support to abdomen. Gait Assessment Gait Gait Assistance Required: Standby Assistance,1 Person Assist Distance (Feet) 10 Able to Maintain Weight Bearing Status Yes During Gait Assistive Devices Assistive Device Gait Belt,Front Wheeled Walker Orthotic/Prosthetic Devices or Brace: No Gait Deviations General Gait Pattern Decreased Stride Length, Decreased Feet Clearance Factors Limiting Gait Function Factors Limiting Gait Function Decreased Activity Tolerance, Decreased Strength,Limited Range of Motion,Pain,Poor Balance,Poor Safety Awareness Comments Gait Comments pls refer to mobility and PT transfer assessment section for details. SpO2 monitor: During/After gait: 86% At end with 1' rest and deep breathin% M5 PT-IP Objective Assessments Start: 07/03/21 15:51 Freq: NEEDED Status: Active Protocol: Document 07/03/21 14:06 AB (Rec: 07/03/21 16:10 AB [id number]) Orientation Orientation/Cognition Level of Alertness Alert Orientation Name,Place,Situation Language Function Ability No Deficits Noted Safety Awareness Decreased Safety Awareness Gross Range of Motion Lower Extremity ROM Assessment Within Functional Limits Strength Lower Extremity Strength Assessment Right Impaired Hip 3+/5 Knee 3+/5 Muscle Tone Muscle Tone WNL Yes M6 PT-IP Treatment Start: 07/03/21 15:51 Freq: NEEDED Status: Active Protocol: Document 07/04/21 10:47 LRN (Rec: 07/04/21 11:14 LRN [id number]) Physical Therapy Treatment Exercises Exercises Ankle Pumps,Heel Slides Education Education Provided Precautions,Safety Other Treatments Other Treatment Performed Nestor LE ex: LE roll in/outs Deep breathing during and after walking M7 PT-IP Assessment and Plan Start: 07/03/21 15:51 Freq: NEEDED Status: Active Protocol: Document 07/04/21 10:47 LRN (Rec: 07/04/21 11:14 LRN [id number]) PT Summary Assessment and Plan Potential Rehabilitation Potential Good Status of Condition at Evaluation Evolving Summary Impairments Pain,ROM,Strength,Balance, Coordination,Sensation,Tone, Cognition,Bed Mobility, Transfers,Gait,Activity Tolerance Assessment Summary Pt improved in function with ability to transfer with Graham to SBA. He is limited in mobility and function due to abdominal pain, especially with transfer out of bed (into bed transfer not assessed this AM due to pt wanting to remain in sitting after therapy), and finds some relief with use of pressure to abdomen, using a pillow with transfers. Functionally he is very limited by his poor endurance and very low aerobic capacity with drop of SpO2 into the upper 80's with activity. He is able to recovery fairly quickly at sitting rest with deep breathing; therefore recommend SNF for rehab at this time. Goals Bed Mobility Goal Minimal Assistance Transfer Goal Contact Guard Assistance,Front Wheeled Walker Gait Goal Contact Guard Assistance,Front Wheel Walker Gait Distance 100 Days to Meet Goals 10 Frequency of Treatment Frequency Of Treatment Once a Day Treatment Plan Physical Therapy Treatment Plan Bed Mobility Training,Transfer Training,Gait Training, Therapeutic Exercise,Balance Retraining,Post Op Education, Discharge Planning,Hot or Cold Pack,Neuromuscular Re-ed, Coordination Retraining,Manual Therapy Other Recommendations and Next Treatment Review of precautions, Focus Transfer training in/out of bed from as close to supine position as tolerated, Improve aerobic conditioning with supervision of SpO2 values. Precautions Abdominal Surgery Precautions Log Roll,Lifting Restrictions, Gait Belt above Incisional Area Recommendations To Nursing Amount of Assist Needed 1 Person Assist Discharge Recommendations PT Discharge Recommendations SNF Rehab Transportation Needs at Discharge Wheelchair/Cabulance
--- NOTE | 2021-07-04 14:47 | CM.DANOTE ---
DCP/continued: Reviewed chart. Patient seen by therapy today and SNF continues to be recommended. Clinic has been faxed to both [facility] and [facility]. No return call back as of 07-04-21. CREATIVE WRITING PROFESSOR to call and revisit SNF for anticipated d/c on Monday07-06-21. Patient will be eligible per Medicare guidelines. Patient 02 saturations drop during activity however, notes report patient is quick to recover. P: CM team to follow closely and f/u with SNF's in AM. TOMY Canela
[2021-07-04] MEDS: ATORVASTATIN 20 MG TABLET 80 MG PO (17:06)
[2021-07-04] MEDS: MELATONIN 3 MG TABLET PO (21:41)
[2021-07-05] MEDS: MEROPENEM 1 GM in SODIUM CHLORIDE 0.9% 100 ML 200 ML IV ×2 (01:32→09:19)
[2021-07-05] MEDS: SODIUM CHLORIDE 0.9% FLUSH 10 ML IV ×2 (01:33→09:10)
[2021-07-05 01:46] VITALS: BP 142/79; PULSE 62; RESP 16; TEMP 36.4; O2SAT 93
--- NOTE | 2021-07-05 02:33 | PC.NURSE ---
Patient is alert and oriented but anxious about medications he is receiving. Breath sounds CTA with RA sat of 93%. HRR. BP has been trending high and was 142/79 at time of assessment. Denied nausea. BT present and has already had BM following surgery. Bandaid dressings to abdomen are CDI. Previous drain site dressing to abdomen is CDI. Denies dysuria, frequency or urgency with urination. Is able to move himself in bed. Gait not assessed but reports he gets up with walker and 1 assist; reports some chronic lightheadedness when first sitting up on edge of bed. Non pitting puffiness of bilateral LE left > right and patient requests diet be changed to low Na as has been getting too much salt. Wearing bilateral calf SCD's. Denies pain. Fall risk score is high and bed alarm is activated.
[2021-07-05 06:02] VITALS: BP 172/90; PULSE 63; RESP 16; TEMP 36.4; O2SAT 94
[2021-07-05 09:04] VITALS: BP 155/80; PULSE 65; RESP 18; TEMP 35.3; O2SAT 94
[2021-07-05] MEDS: AMILORIDE 5 MG 5 EACH PO (09:08)
[2021-07-05] MEDS: LACTOBACILLUS ACIDOPHILUS TABLET 1 EACH PO (09:09)
[2021-07-05] MEDS: TAMSULOSIN 0.4 MG CAPSULE PO (09:09)
[2021-07-05] MEDS: ASPIRIN 81 MG CHEW TAB PO (09:09)
[2021-07-05 09:15] VITALS: BP 167/91; PULSE 75
[2021-07-05] MEDS: LOSARTAN 25 MG TABLET PO (09:15)
--- NOTE | 2021-07-05 10:44 | PT.IPTN ---
Current Diagnoses Acute cholecystitis (07/03/21) Cholecystitis, unspecified (07/03/21) Benign prostatic hyperplasia without lower urinary tract symptoms (07/03/21) Personal history of other diseases of the circulatory system (07/03/21) Surgery Performed Operation Date: 07/02/21 16:30 Actual Procedures p Laparoscopic Cholecystectomy - Hakan Grover MD Physical Therapy Treatment Note M2 PT-IP Current Condition Start: 07/03/21 15:51 Freq: NEEDED Status: Active Protocol: Document 07/05/21 10:20 MA (Rec: 07/05/21 13:04 MA [email or web address]) Physical Therapy Current Condition Current Condition Evaluation Date 07/03/21 Treatment Diagnosis s/p Lap sherry; difficulty in walking Onset Date 06/30/21 Precautions Abdominal Surgery Precautions Log Roll,Lifting Restrictions, Gait Belt above Incisional Area M3 PT-IP Subjective Start: 07/03/21 15:51 Freq: NEEDED Status: Active Protocol: Document 07/05/21 10:20 MA (Rec: 07/05/21 13:04 MA [email or web address]) Subjective Physical Therapy Visit Type Type Treatment Note Visit Start Time 10:20 Visit Stop Time 10:44 Total Visit Minutes 24 Number of QUAL FIELD MANAGER Visits 1 Physical Therapy Visit Comments Patient Comments Pt agreeable to therapy and states he would like to go home instead of SNF Therapy Pain Assessment Pain When Pain Assessed At Rest Pain Present Pain Present Denied Pain M4 PT-IP Mobility and Gait Start: 07/03/21 15:51 Freq: NEEDED Status: Active Protocol: Document 07/05/21 10:20 MA (Rec: 07/05/21 13:04 MA [email or web address]) PT-Bed Mobility Assessment Rolling Type of Rolling Log Rolling Level of Assist Independent Supine to Sit Supine to Sit Standby Assistance,1 Person Assistance,Bedrails Sit to Supine Sit to Supine Standby Assistance,1 Person Assistance,Bedrails Scooting Scooting to Edge of Bed Standby Assistance PT-Transfer Assessment Sit to and From Stand Sit to and from Stand Standby Assistance,1 Person Assistance,Use of Upper Extremities Equipment Transfer Assistive Device Gait Belt,Front Wheeled Walker Orthotic/Prosthetic Devices or Brace: No Transfers Transfer Destination Bed,Chair Transfer Technique Stand Step Pivot Transfer Ability Level of Assist Standby Assistance,Use of Upper Extremities Comments Mobility Comments Pt does not have pain today and does not want to use pillow when log rolling. He is able to perform bed mobility SBA with HOB flat today. He requires verbal cues to remember to log roll for precautions. He uses walker for first sit<>stand but admits he has not been using the walker recently and he prefers to get up without it. Pt is able to safely transfer sit<>stands and between bed/ room chair without walker this session. Gait Assessment Gait Gait Assistance Required: Standby Assistance,1 Person Assist Distance (Feet) 250 Able to Maintain Weight Bearing Status Yes During Gait Assistive Devices Assistive Device Gait Belt,Front Wheeled Walker Orthotic/Prosthetic Devices or Brace: No Gait Deviations General Gait Pattern Decreased Stride Length, Decreased Feet Clearance, Flexed Trunk Factors Limiting Gait Function Factors Limiting Gait Function Decreased Activity Tolerance, Decreased Strength,Limited Range of Motion,Poor Balance, Poor Safety Awareness Comments Gait Comments Pt is able to ambulate 1 loop of nurses station with gait belt and FWW and one loop with only gait belt, both laps SBA . When not using the walker, pt has increased trunk flexion and decreased speed. With the walker, pt places a lot of weight into UEs but walks at a more normal pace. He has no dizziness during gait today. PT-Balance Assessment Sitting Balance and Reactions Static Sitting Balance Ability Good Dynamic Sitting Balance Ability Fair Standing Balance and Reactions Static Standing Balance Ability Fair Dynamic Standing Balance Ability Fair Device Used FWW M5 PT-IP Objective Assessments Start: 07/03/21 15:51 Freq: NEEDED Status: Active Protocol: Document 07/03/21 14:06 AB (Rec: 07/03/21 16:10 AB [id number]) Orientation Orientation/Cognition Level of Alertness Alert Orientation Name,Place,Situation Language Function Ability No Deficits Noted Safety Awareness Decreased Safety Awareness Gross Range of Motion Lower Extremity ROM Assessment Within Functional Limits Strength Lower Extremity Strength Assessment Right Impaired Hip 3+/5 Knee 3+/5 Muscle Tone Muscle Tone WNL Yes M6 PT-IP Treatment Start: 07/03/21 15:51 Freq: NEEDED Status: Active Protocol: Document 07/05/21 10:20 MA (Rec: 07/05/21 13:04 MA [email or web address]) Physical Therapy Treatment Education Education Provided Precautions,Safety M7 PT-IP Assessment and Plan Start: 07/03/21 15:51 Freq: NEEDED Status: Active Protocol: Document 07/05/21 10:20 MA (Rec: 08/30/21 13:04 MA [email or web address]) PT Summary Assessment and Plan Potential Rehabilitation Potential Good Status of Condition at Evaluation Evolving Summary Impairments Pain,ROM,Strength,Balance, Coordination,Sensation,Tone, Cognition,Bed Mobility, Transfers,Gait,Activity Tolerance Assessment Summary Pt was found in room chair upon arrival. His SaO2 was 93% , when attempting to get BP, Dr and nurse arrived in room and pt started moving around making BP reading inaccurate. Nurse states pt's BP has been high today and is being monitored. Pt is able to improve ambulation to SBA without an AD but decreases speed and increases trunk flexion when not using FWW. Pt admits he has not been log rolling to get into/out of bed . Lowered HOB and had pt practice properly getting into /out of supine position SBA 2x . Educated pt on importance of log rolling after abdominal surgery. At end of session pt states he had dizziness and almost fell when getting to room chair independently in the AM but felt fine throughout session with PT. Dizziness is likely due to uncontrolled BP and nurse is made aware of pt's status at end of session. Pt is worried about getting into his personal vehicle if d/c home as it is a high SUV. Pt left supine in bed with all needs in reach, awaiting JEWELRY SALES ASSOCIATE for shower. Goals Bed Mobility Goal Minimal Assistance Transfer Goal Contact Guard Assistance,Front Wheeled Walker Gait Goal Contact Guard Assistance,Front Wheel Walker Gait Distance 100 Days to Meet Goals 10 Frequency of Treatment Frequency Of Treatment Once a Day Treatment Plan Physical Therapy Treatment Plan Bed Mobility Training,Transfer Training,Gait Training, Therapeutic Exercise,Balance Retraining,Post Op Education, Discharge Planning,Hot or Cold Pack,Neuromuscular Re-ed, Coordination Retraining,Manual Therapy Other Recommendations and Next Treatment Find way to practice getting Focus into/out of high vehicle ( raise bed possibly?). Continue bed mobility training with log roll for precautions, HOB flat. Improve aerobic conditioning with supervision of SpO2 values. Precautions Abdominal Surgery Precautions Log Roll,Lifting Restrictions, Gait Belt above Incisional Area Recommendations To Nursing Amount of Assist Needed Standby Assistance Discharge Recommendations PT Discharge Recommendations Home with Assistance,SNF Rehab Transportation Needs at Discharge Private Vehicle,Wheelchair/ Cabulance
--- NOTE | 2021-07-05 12:58 | P.DS_ITS ---
History of Present Illness History of Present Illness Chief complaint: Direct admit/cholecystitis Narrative: Buzz Hi is a 60-year-old man transferred from an outside facility for acute cholecystitis. He developed right upper quadrant pain over the course the last 2 days. He presented to the outside institution with abdominal bloating and pain underwent ultrasound that demonstrates cholelithiasis and acute cholecystitis normal LFTs white blood cell count 13. He was started on antibiotic therapy has significant improvement in his abdominal pain since arrival. He is tolerating a clear liquid diet. He has remote history of myocardial infarction with stents takes aspirin and PRASUGREL last dose yesterday 9:00 a.m.. Discharge Providers Provider Date of admission: 07/03/21 14:51 Discharge Date: 07/05/21 Consults: 07/01/21 11:13 Consult to Hospitalist Service Routine Comment: Consulting Provider: Jose Luis Bose Reason for consultation: [place] Dec 08 stents on dual antiplt therapy. Risk stratify for cholecystectomy Has provider been notified: Yes 07/02/21 22:47 Consult to Discharge Planning Routine Comment: 07/03/21 10:10 [place] [facility] [place] [facility] Routine Comment: lives alone, car [facility] 07/03/21 11:27 Consult to Physical Therapy Evaluate & Treat Comment: Physician Instructions: Evaluate and Treat Discharge provider: Karri Florez MD Summary Hospital Course Discharge Diagnosis: acute cholecystitis Hospital Course: The patient was transferred from an outside hospital for management of acute cholecystitis. He had a history of myocardial infarction takes aspirin and PRASUGrel. He initially declined operative intervention and he was treated with IV antibiotic therapy. The antibiotic therapy was not successful he had worsening abdominal pain and return of his leukocytosis. He was taken to the operating 07/02 underwent a laparoscopic cholecystectomy which demonstrated a a necrotic gallbladder. He tolerated the operation well. At the time of discharge 07/05/2021 he is tolerant of a diet without nausea vomiting, afebrile and a intra-abdominal drain has been removed.. Exam Vital Signs (past 8 hours): - 07/05/21 06:02 07/05/21 09:04 07/05/21 09:15 Temperature 97.5 F L 95.6 F L Pulse Rate 63 65 75 Respiratory Rate 16 18 Blood Pressure 172/90 H 155/80 H 167/91 H Pulse Oximetry 94 94 Oxygen Delivery Method Room Air Oxygen Flow Rate 0 Narrative Exam Narrative: Constitutional-he is oriented to person, place and time. No apparent distress Cardiovascular- regular rate, no peripheral edema Pulmonary-unlabored respiratory effort, no audible wheezing Abdominal-soft, appropriately tender to palpation. Laparoscopic port incisions with Band-Aids over them clean dry intact Musculoskeletal-no cyanosis or clubbing Neurological-nonfocal, normal strength throughout, normal gait. Skin-warm and dry Objective Labs Result Diagrams: 07/04/21 05:25 07/04/21 05:25 [facility] Medical History BPH (benign prostatic hyperplasia) Hyperlipidemia Hypertension Myocardial infarct, old Neuropathy Vertigo Surgical History Hx of tonsillectomy Family History Mother Cancer Dementia Father Cancer Social History household members: none Smoking Status: Never smoker alcohol intake: never Discharge Plan Discharge Plan Patient Disposition: Home Provider Discharge Comment: -Okay to shower -Do not submerge wounds in water until seen in follow-up. -No lifting >20 lbs x 4 weeks. -Walking only for exercise for 4 weeks. -No driving while taking narcotics. Discharge orders & Medications Prescriptions: New oxycodone 5 mg tablet See Rx Instructions .ROUTE .COMPLEX PRN (Reason: pain) Qty: 30 RF: 0 acetaminophen [Tylenol] 325 mg capsule 650 mg PO QID PRN (Reason: pain) Qty: 60 RF: 0 Continued tamsulosin 0.4 mg capsule 0.4 mg PO QAM RF: 0 amiloride 5 mg tablet 5 mg BID RF: 0 losartan 25 mg tablet 25 mg BID RF: 0 prasugrel 10 mg tablet 10 mg QAM RF: 0 atorvastatin 80 mg tablet 80 mg QPM RF: 0 aspirin 81 mg 81 mg QAM RF: 0 ascorbic acid (vitamin C) [Vitamin C] 500 mg Tablet 500 mg PRN PRN (Reason: Cold Symptoms) RF: 0 Follow up/Referrals: Hakan Grover MD [Physician] - 07/19/21 3:30 pm (appt:07/19 @ 3:30 w/Dr Grover ) Diet/Activity/Treatments Diet: Low-fat Visit Report/Discharge Packet Instructions: Cholecystectomy -- Laparoscopic Surgery, DI for Prescription Opioid Use Quality VTE Deep Vein Thrombosis/Pulmonary Embolism Present on Admission: No
--- NOTE | 2021-07-05 13:56 | PC.NURSE ---
Addendum entered by Greta Pratt R.N. 07/05/21 13:59: Belongings from safe and rx meds returned to pt. Original Note: Pt ready for d/c to home. IV removed. Education provided on follow up appts with surgeon and PCP/cardiology, medications, s/s of infection and stroke, activity and dietary limitations, and dressing instructions. Pt with no questions at this time. Pt given taxi voucher and taken down by DIRECTOR STUDENT UNION via wheelchair to be transported via taxi to [facility] to his private vehicle.
--- NOTE | 2021-07-05 17:33 | CM.DANOTE ---
DCP/continued: Reviewed chart. Provider reports patient is stable to d/c home today without any d/c planning needs. Patient reports to RN/Greta that he needs ride to [facility]. Patient transferred there due to capacity issues. COREMAKER MACHINE requested [place]/Maria Victoria re-check Medicaid benefit for transport. Patient confirmed not to have benefit nor does he have the ability to private pay for cab or friend/family member that can pick him up. Therefore, COREMAKER MACHINE approved [employer] taxi for transport to [facility]. Approximate amount is $100.00. Patient also requesting resources for PCP follow up and metabolic specialist. COREMAKER MACHINE compiled list and provided it to RN to provide to patient at time of d/c. [place]/Maria Victoria coordinated taxi arrangements. P: Home today. TMOY Canela
== END 2021-07-05 13:59 | disposition home or self-care (01) | DRG 419 ==
PROVIDERS: Specialist; Surgery; Admitting Provider Surgery; Referring Provider Surgery; Visit Provider Surgery
PROC: 0FT44ZZ Resection of Gallbladder, Percutaneous Endoscopic Approach (ICD-10-PCS; CPT 47562; principal; 2021-07-02 16:30)
DX: K80.01 Calculus of gallbladder with acute cholecystitis with obstruction (principal); K82.A1 Gangrene of gallbladder in cholecystitis; I25.2 Old myocardial infarction; I10 Essential (primary) hypertension; E78.5 Hyperlipidemia, unspecified; E66.9 Obesity, unspecified; Z91.19 Patient's noncompliance with other medical treatment and regimen; N40.0 Benign prostatic hyperplasia without lower urinary tract symptoms; F43.10 Post-traumatic stress disorder, unspecified; I25.10 Atherosclerotic heart disease of native coronary artery without angina pectoris; Z95.5 Presence of coronary angioplasty implant and graft; Z79.01 Long term (current) use of anticoagulants; Z68.32 Body mass index [BMI] 32.0-32.9, adult; Z20.822 Contact with and (suspected) exposure to COVID-19
CPT/HCPCS: 36415; 47562; 80053; 80202; 82378; 82550; 82962; 84153; 84484; 85025; 87040; 87070; 87075; 87205; 93005; 93010; 97116; 97162; 97530; 99220; G0378; C8929; G0379; J1100; J1885; J2185; J2250; J2405; J2543; J2704; J3010; Q9957